=== PATIENT | male | born 1960 | race Caucasian/White ===

== ENCOUNTER 2019-03-23 10:55 | Inpatient (IN) | payer BC, SELFPAY ==
--- NOTE | ~2019-03-23 | XR_ITS ---
XR abdomen NG/feed tube insert INDICATION: Evaluate NG tube position. TECHNIQUE: Limited KUB perform for evaluating NG tube . COMPARISON: 03/25/2019 FINDINGS: [NG tube tip in the stomach. Visualized bowel gas pattern is nonspecific. IMPRESSION: 1: [NG tube tip in the stomach. Reviewed, dictated and finalized at location A. LE EQUIPMENT OPERATOR
--- NOTE | ~2019-03-23 | XR_ITS ---
EXAMINATION: XR abdomen obstructive series DATE: 03/25/2019 07:42 INDICATION: Adynamic ileus. TECHNIQUE: Upright and supine views of the abdomen on 4 radiographs were obtained. COMPARISON: CT abdomen and pelvis 03/23/2019 FINDINGS: There are multiple dilated loops of small bowel. The colon is mildly distended and gas-fill ed. No free intraperitoneal gas. There are phleboliths in the pelvis. There are airspace opacities at left lung base, likely atelectasis. IMPRESSION: 1. Dilated small and large bowel, likely adynamic ileus. Reviewed, dictated and finalized at location B. ATRIC SPEECH THERAPIST
--- NOTE | ~2019-03-23 | MR_ITS ---
EXAMINATION: MR lumbar spine wo con DATE: 03/28/2019 14:46 INDICATION: Low back pain. TECHNIQUE: Magnetic resonance imaging (MRI) of the lumbar spine was performed without intravenous con trast. Sequences included sagittal T2-weighted FSE, sagittal T2-weighted FS FSE, sagittal T1-weighted FSE, and axial T2-weighted FSE. COMPARISON: CT abdomen and pelvis 03/23/2019 FINDINGS: Bone alignment is normal. There are Schmorl's nodes at all levels. There is mildly decrease d disc height at L2-L3 and L3-L4, moderately decreased disc height at L4-L5, and severely decreased d isc height at L5-S1. The distal spinal cord signal intensity is normal. The conus medullaris is at T1 2-L1. The following disc levels are specifically discussed: L1-L2: The disc does not extend beyond the endplate margin. There is mild bilateral facet joint osteo arthritis. There is no neural foraminal stenosis. There is no central canal stenosis. L2-L3: The disc is bulging. There is moderate bilateral facet joint osteoarthritis. There is mild susie ateral neural foraminal stenosis. There is mild central canal stenosis. L3-L4: The disc is bulging. There is no facet joint osteoarthritis. There is mild bilateral neural fo raminal stenosis. There is mild central canal stenosis. L4-L5: The disc is bulging. There is moderate bilateral facet joint osteoarthritis. There is moderate right and mild left neural foraminal stenosis. There is mild central canal stenosis. L5-S1: The disc is bulging and has an annular fissure. There is mild bilateral facet joint osteoarthr itis. There is mild right and moderate left neural foraminal stenosis. There is mild central canal st enosis. IMPRESSION: 1. Severe lower lumbar spondylosis. Reviewed, dictated and finalized at location A. OR PROJECT ARCHITECT
--- NOTE | ~2019-03-23 | XR_ITS ---
EXAMINATION: XR chest 1V portable DATE: 03/23/2019 12:51 INDICATION: Right flank pain. TECHNIQUE: A single frontal view of the chest was obtained. COMPARISON: Chest 2 views 02/23/2014 FINDINGS: There is mild atelectasis in the lower lung zones. No pleural effusion or pneumothorax. The heart size is normal. IMPRESSION: 1. Mild atelectasis in the lower lung zones. Reviewed, dictated and finalized at location A. MITE RECLAIMER
--- NOTE | ~2019-03-23 | US_ITS ---
EXAMINATION: US right upper quadrant DATE: 03/25/2019 08:47 INDICATION: Abdominal pain. TECHNIQUE: Multiple grayscale and Doppler ultrasound images of the abdomen were obtained. COMPARISON: CT abdomen and pelvis 03/23/2019 FINDINGS: The visualized portions of the head and body of the pancreas are normal. There is diffuse h epatic steatosis. There is normal flow in main portal vein. The gallbladder is normal in size. No gal lstones or gallbladder wall thickening. There was no sonographic Sylvester sign. The common duct is norm al and measures 4 mm. There is a 4.0 cm cyst in right kidney. IMPRESSION: 1. Diffuse hepatic steatosis. Reviewed, dictated and finalized at location B. LINE SYSTEMS OPERATOR
--- NOTE | ~2019-03-23 | XR_ITS ---
EXAMINATION: XR abdomen/kub 1V INDICATION: Abdominal distention TECHNIQUE: Supine views of the abdomen were obtained on three radiographs. COMPARISON: 03/26/2019 FINDINGS: The nasogastric tube is been removed. There is persistent gaseous distention of the ascendi ng and transverse colon. The small bowel is normal in caliber. No free intraperitoneal gas is identif ied. IMPRESSION: 1. Persistent gaseous distention of the ascending and transverse colon, likely adynamic ileus. Reviewed, dictated and finalized at location A. ROPOMETRIST
--- NOTE | ~2019-03-23 | CT_ITS ---
EXAMINATION: CT abdomen pelvis w con DATE: 03/23/2019 12:29 INDICATION: Left flank pain. TECHNIQUE: Computed tomography (CT) of the abdomen and pelvis was performed with 100 mL Omnipaque 350 intravenous contrast. Automated exposure control and iterative reconstruction technique were employe d. The dose-length product was 1719.74 mGy-cm. COMPARISON: None. FINDINGS: The visualized portions of the lung bases demonstrate mild atelectasis. There are small ple ural effusions. The heart size is normal. No pericardial effusion. The liver, gallbladder, spleen, pa ncreas, and adrenal glands are normal. There is a 3.9 cm cyst in right kidney. There is a 3.9 cm mass in left kidney upper pole with macroscopic fat, consistent with an angiomyolipoma. There is mild lef t hydronephrosis. There is a left inguinal hernia containing fat. There are no dilated loops of bowel . The appendix is normal. There are no pathologically enlarged lymph nodes. There is no free intraper itoneal fluid. There is severe lower lumbar spondylosis. IMPRESSION: 1. Mild left hydronephrosis. 2. Left inguinal hernia containing fat. Reviewed, dictated and finalized at location A. STANT SUPERINTENDENT FOR CURRICULUM
--- NOTE | ~2019-03-23 | XR_ITS ---
EXAMINATION: XR abdomen/kub 1V DATE: 03/26/2019 08:35 INDICATION: Adynamic ileus. TECHNIQUE: A supine view of the abdomen on 2 radiographs was obtained. COMPARISON: CT abdomen and pelvis 03/23/2019 FINDINGS: The small bowel is normal in caliber. There is gaseous distention of the ascending and hector sverse colon. The nasogastric tube tip is in the stomach. There are phleboliths in the pelvis. IMPRESSION: 1. Gaseous distention of the ascending and transverse colon, consistent with adynamic ileus. Reviewed, dictated and finalized at location A. ENERGY RATER IMPRESSION: 1. Gaseous distention of the ascending and transverse colon, consistent with ad ynamic ileus.
--- NOTE | ~2019-03-23 | XR_ITS ---
EXAMINATION: XR enema water soluble DATE: 03/28/2019 11:28 INDICATION: Ileus, irregular bowel movement, concern for obstruction TECHNIQUE: A director of scout work radiograph was obtained. A catheter was inserted into the patient's rectum. Contra st was infused by gravity. Fluoroscopic spot images and conventional radiographs were obtained. Fluor oscopy exposure time was 2.1 minutes. The DAP for this procedure was 424.7 mGycm2. COMPARISON: Abdominal radiograph from today FINDINGS: Call Out Clerk radiograph demonstrates persistent distention of the ascending and transverse colon. The descending and sigmoid colon and rectum are normal in caliber with smooth transition between the distended and nondistended colon. There is no mass or stricture of the colon. No free intraperitoneal gas is identified. IMPRESSION: 1. Findings consistent with adynamic ileus. Reviewed, dictated and finalized at location A. NE EQUIPMENT ENGINEER
[2019-03-23 11:19] VITALS: BP 154/82; PULSE 110; RESP 16; TEMP 36.9; O2SAT 100
[2019-03-23 11:34] LABS: Basophils Absolute Auto 0.1 K/mm3 (0.0-0.1); Basophils Percent Auto 0.3 % (0.2-1.2); Eosinophils Absolute Auto 0.1 K/mm3 (0-0.3); Eosinophils Percent Auto 0.5 % (0-4.4); Hematocrit 46.8 % (42.0-52.0); Immature Granulocyte Absolute 0.15 K/mm3 (0.00-0.031); Immature Granulocyte Percent A 0.6 % (0-0.5); Lymphocytes Absolute Auto 2.08 K/mm3 (0.9-3.2); Mean Corpuscular HGB Conc 34.2 g/dl (32-36); Mean Corpuscular Volume 84.9 fl (80-100); Mean Platelet Volume 10.4 fl (7.4-10.4); Monocytes Percent Auto 8.8 % (2.6-8.5); Neutrophils Absolute Auto 18.6 K/mm3 (1.3-6.7); Neutrophils Percent Auto 80.8 % (45.5-73.1); Platelet Count Result 236 k/mm3 (150-375); Red Blood Count 5.51 M/mm3 (4.6-6.20); Red Cell Distribution Width 12.1 % (11.5-14.5); White Blood Count 23.1 K/mm3 (4.5-10.0)
[2019-03-23 11:36] LABS: Add Urine Microscopic? YES; Appearance Urine Clear (Clear); Bilirubin Urine Negative (Negative); Blood Urine Negative (Negative); Color Urine Yellow (Yellow); Glucose Urine UA Negative (Negative); Ketones Urine Trace mg/dL (Negative); Leukocyte Esterase Ur Negative LEU/UL (Negative); Mucus Urine Rare /lpf; Nitrate Urine Negative (Negative); Protein Urine 3+ mg/dL (Negative); RBC Urine 0-2 /hpf (0-2); Specific Grav Ur 1.023 (1.001-1.035); Urobilinogen Urine Negative mg/dL (<2.0); WBC Urine 0-3 /hpf
[2019-03-23 11:45] LABS: Alanine Aminotransferase 24 U/L (4-50); Albumin Level 4.6 g/dL (3.5-5.1); Alkaline Phosphatase 70 U/L (38-126); Aspartate Amino Transferase 19 U/L (17-59); Bilirubin,Total 0.9 mg/dL (0.2-1.3); Blood Urea Nitrogen 13 mg/dL (9-20); Calcium 9.7 mg/dL (8.4-10.2); Carbon Dioxide 25 mmol/L (22-30); Chloride 93 mmol/L (98-107); Estimated CRCL calculation 108 ml/min; Estimated Glomerular Filt Rate > 60; Glucose 214 mg/dL (75-110); Lipase 25 U/L (23-300); Potassium 3.7 mmol/L (3.4-5.0); Sodium 132 mmol/L (137-145)
--- NOTE | 2019-03-23 12:10 | ED.ABDPAIN ---
HPI - Abdominal Pain General Chief Complaint: Abdominal Pain Stated Complaint: ABD PAIN X2D Time Seen by Provider: 03/23/19 12:05 Source: patient and RN notes reviewed Mode of arrival: ambulatory Limitations: no limitations History of Present Illness HPI narrative: Pt is a 58 y/o male presenting to the ED c/o ABD pain. Pt reports he has been experiencing LUQ ABD pain for 2 days. Pt states his pain is not alleviated nor worsened with anything. Pt also notes he has had rt flank pain directly after moving a couch last Thursday. Pt denies N/V, diarrhea, or fever. Pertinent past history: none Onset (ago): day(s) (2) Location: LUQ Exacerbating factors: nothing Relieving factors: nothing Associated symptoms: other (Rt flank pain) Related Data Allergies Allergy/AdvReac Type Severity Reaction Status Date / Time Penicillins Allergy Unknown Unknown Verified 03/23/19 11:23 Review of Systems Review of Systems: All systems reviewed & are unremarkable except as noted in HPI and below Constitutional: Constitutional: Denies fever(s) Gastrointestinal: Gastrointestinal: Reports abdominal pain (LUQ), Denies diarrhea, Denies nausea and Denies vomiting Musculoskeletal: Musculoskeletal: Reports other (Rt flank pain) [facility] Past Medical History Medical History Bronchitis Diabetes mellitus HTN (hypertension) Psoriasis Surgical History Surgical History H/O hernia repair H/O left knee surgery H/O partial nephrectomy Lt History of testicular surgery Family History Family History Father Family history of diabetes mellitus in first degree relative Family history of heart disease in male family member before age 55 Mother Family history of heart disease in male family member before age 55 Social History Social History Smoking status: Unknown if ever smoked Gender identity (if verbalized by the patient): Male Exam Narrative: Exam Narrative: APPEARANCE: No acute distress, nontoxic, resting in bed HEENT: Normocephalic, atraumatic, OMM RESPIRATORY: No respiratory distress, clear to auscultation bilaterally with no rhonchi wheezing or rales CARDIOVASCULAR: RRR s murmur ABDOMINAL: Obese, soft, nondistended, tender to palpation in left upper quadrant left lower quadrant, no tenderness in right upper quadrant right lower quadrant, rebound or guarding MUSCULOSKELETAl: Moves all extremities. No clubbing, cyanosis or edema. NEURO: Awake and alert. Following commands, speech normal, no focal deficits SKIN:: Warm, dry. Normal Color PSYCHIATRIC: Normal affect/mood Course Course Emergency Course: Patient states abdominal pain is improved with less tenderness in left upper quadrant with leukocytosis will admit Discussed with patient and family results of workup and diagnosis. Discussed need for admission. Patient and family understand and agree to current treatment plan Consultations Consultation #1: Discussed case with Hospitalist MARISOL Rocha. Accepted the pt for admission. Date: 03/23/19 Time: 13:48 Consultation #2: Discussed case with General Surgeon Dr. Colindres. Accepted the pt for consultation. Date: 03/23/19 Time: 14:30 Vital Signs Vital signs: Vital Signs Temperature 98.5 F 03/23/19 11:19 Pulse Rate 110 H 03/23/19 11:19 Respiratory Rate 16 03/23/19 11:19 Blood Pressure 154/82 H 03/23/19 11:19 Pulse Oximetry 100 03/23/19 11:19 Temperature 98.5 F 03/23/19 11:19 Pulse Rate 95 03/23/19 12:39 Respiratory Rate 27 H 03/23/19 12:39 Blood Pressure 173/84 H 03/23/19 12:39 Pulse Oximetry 98 03/23/19 12:39 MDM - Abdominal Pain Lab Data Result diagrams: 03/23/19 11:21 03/23/19 11:21 Labs: Lab Results 03/23/19 03/23/19 03/23/19 Range/Units 11:21 11:21 11:21 WBC 23.1 H (4.5-10.0) K/mm3
--- NOTE | 2019-03-23 12:31 | PC.NURSE ---
PT TAKEN TO CT PER STRETCHER AT THIS TIME, WILL MEDICATE PER PROVIDER ORDER UPON RETURN.
[2019-03-23 12:39] VITALS: BP 173/84; PULSE 95; RESP 27; O2SAT 98
[2019-03-23] MEDS: SODIUM CHLORIDE 0.9% IV 1,000 ML 999 ML IV CONT (12:39)
[2019-03-23 13:23] LABS: INR 1.1; Prothrombin Time 14.3 Seconds (11.1-14.7)
[2019-03-23 13:24] LABS: Partial Thromboplastin Time 34.1 SECONDS (22.3-36.8)
[2019-03-23 13:40] LABS: Lactic Acid Reflex 1.3 mmol/L (0.7-2.1)
[2019-03-23 14:00] VITALS: BP 163/97; PULSE 80; RESP 18; O2SAT 100
[2019-03-23 15:11] VITALS: BP 180/101; PULSE 91; RESP 18; O2SAT 97
[2019-03-23] MEDS: SODIUM CHLORIDE 0.9% IV 1,000 ML 125 ML IV CONT (15:26)
--- NOTE | 2019-03-23 15:36 | PC.NURSE ---
This patient, Cali Lopez, was admitted to 3 [facility] Surg Room 310-01. Report received from MILAGROS Harden. Patient/family oriented to hospital policies and general routines including ID bracelet, bed and alarms, visiting hours, pain management, procedures, bathroom and other care routines, personal items, smoking policy, room service/diet, and visiting hours. Valuables list has been completed. Information on how to activate the Rapid Response Team has been discussed. Patient/Family are encouraged to report perceived risks to care and to ask questions if they do not understand what they are told or what they should do.
[2019-03-23 15:46] VITALS: BP 144/66; PULSE 91; RESP 18; TEMP 36.6; O2SAT 96
--- NOTE | 2019-03-23 16:00 | PM.IMHP ---
H&P: HPI History of Present Illness Chief complaint: Abdominal pain. Narrative: Cali Lopez is a pleasant 58 year old male with hypertension and type 2 diabetes who presented to the emergency department earlier this afternoon from home for evaluation of abdominal pain. A couple of days ago, maricruz aquino read just in himself on the couch, that he has a difficult time describing but stating that it is sometimes sharp in nature. It has been constant since the outset, but seems to come and go in waves of intensity. Currently he rates the pain 7/10. It does not radiate. additionally, he notes abdominal bloating. He took Aleve x3 however that provided him with no benefit. He gives no aggravating or alleviating factors. He has never had similar symptoms in the past. He has not had fever, chills, or sweats. He denies nausea and vomiting. His stools are ?always a little loose? and this is unchanged. No history of pancreatitis, gallstones, GERD, or peptic ulcers. He does not believe that he has had any musculoskeletal injury. Review of Systems Review of Systems: Narrative: Twelve systems were reviewed with pertinent positives and negatives as per HPI. He denies fever, chills, and sweats. No recent cold or flu-like symptoms. He believes his diabetes is well controlled with a recent hemoglobin A1c of 6.8. His white blood cell count was elevated today, and he has been told a couple of times this year that his white count was elevated from baseline. He is wondering if it is due to stem cell injections in his knees. He has no history of blood dyscrasia. Except as documented, all other systems were reviewed and are negative. [facility] Past Medical History Medical History (Updated 03/23/19 @ 22:31 by Millie Rocha PA-C) Eczema History of depression Hyperlipidemia Hypertension (Unknown) Intervertebral disc rupture Osteoarthritis He has had stem cell injections into both knees. 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 History of testicular surgery For undescended testicle. Family History Family History Father Family history of heart disease in male family member before age 55 Family history of diabetes mellitus in first degree relative Acute myocardial infarction Cerebrovascular accident Mother Family history of heart disease in male family member before age 55 Social History Social History (Updated 03/23/19 @ 21:09 by Millie Rocha PA-C) Social History: The patient is originally from [place]. He lives with his in [place]. He has a remote smoking history and quit 1981. He has a history of alcohol abuse but has abstained for nearly 15 years. No drug use. He designates his as his surrogate decision maker and he wishes to be a full code. Smoking packs per day: 1 Smoking cigarettes per day: 20.0 Years smoked: 10 Smoking pack-years: 10.00 Smoking status: Former smoker Tobacco type: cigarettes Alcohol intake: former Substance use: never Gender identity (if verbalized by the patient): Male Spiritual care concerns: No Agree to blood products: Yes Meds Home Medications and Allergies Home Medications Medication Instructions Recorded Confirmed Type losartan 50 mg PO BID 03/23/19 03/23/19 History metformin 850 mg PO BID 03/23/19 03/23/19 History Allergies Allergy/AdvReac Type Severity Reaction Status Date / Time Penicillins Allergy Unknown Unknown Verified 03/23/19 11:23 Vital Signs Vital Signs - 24 hr 03/23/19 11:19 03/23/19 12:39 03/23/19 14:00 Temperature 98.5 F Pulse Rate 110 H 95 80 Respiratory Rate 16 27 H 18 Blood Pressure 154/82 H 173/84 H
[2019-03-23] MEDS: MORPHINE SULFATE 2 MG/ML INJ IV PUSH (16:14)
[2019-03-23 18:37] VITALS: BMI 42.5
[2019-03-23] MEDS: ACETAMINOPHEN 325 MG TABLET 650 MG PO (21:04)
[2019-03-23] MEDS: LOSARTAN POTASSIUM 50 MG TABLET PO (21:08)
--- NOTE | 2019-03-23 21:33 | PM.CNGS ---
Assessment and Plan Assessment and plan (1) Abdominal pain, acute, left upper quadrant: Onset Date: ~03/22/19 Code(s): R10.12 - Left upper quadrant pain Status: Acute Assessment and Plan: At this point is unknown etiology. CT scan did not showing any light on what might be causing the patient's left upper quadrant pain. Therefore possibilities of gastritis or peptic ulcer disease are present CIS these are not well seen on CT. Possibility of a viral gastroenteritis would be present but the patient is not having the typical symptoms such as nausea, vomiting, and or diarrhea. Therefore, if his white count is still high and he still having upper after quadrant pain in the morning possibly consider GI consultation and upper GI endoscopy to rule out a gastric or duodenal source. I have ordered stool antigen for H pylori. I agree with repeating a CBC and CMP. Added serum magnesium to be sure that is normal. Patient's lactic acid was noted to be normal in the ED so some type of systemic sepsis is less likely. (2) Leukocytosis: Onset Date: ~03/23/19 Code(s): D72.829 - Elevated white blood cell count, unspecified Status: Acute Assessment and Plan: Unknown etiology. Consider repeat in a.m. and if not improved consider having pathology look at a smear May also need to consider a hematology consultation if another reason for the leukocytosis can not be identified. (3) Type 2 diabetes mellitus: Onset Date: Unknown Code(s): E11.9 - Type 2 diabetes mellitus without complications Status: Acute Assessment and Plan: Has per hospitalist service (4) Hypertension: Onset Date: Unknown Code(s): I10 - Essential (primary) hypertension Status: Acute Assessment and Plan: continue home meds, As per hospitalist service. Additional Plan Consider GI consultation upper GI endoscopy. At this time I do not find anything that I believe surgically can be of help. History of Present Illness Consult details Consult date: 03/23/19 Reason for consult: abdominal pain Requesting physician: Mike Blackburn MD Narrative: Pt is a 58 y/o White male who presentied to the ED today c/o ABD pain. Pt reports he has been experiencing LUQ ABD pain for 2 days. Patient states that this seemed to start on Thursday of this week when he was laying on his bed and twisted to try to change positions. This led to low back pain starting around noon to 3:00 p.m. on Thursday. At the time he took 600 mg of Motrin to try to help it and then over the last 2 days has about 10 times late in a warm hot bath. He also last evening took some Tylenol to try to help but. After after a took the Motrin he began having some left upper quadrant abdominal pain. He also began to feel really bloated and so he came to the emergency room today complaining of the left upper quadrant abdominal pain bloating without nausea or vomiting. His last bowel movement was this morning with 2 small solid pieces of stool. Pt states his pain is not alleviated nor worsened with anything. Pt also notes he has had rt flank pain directly after moving wrong on a couch last Thursday. Pt denies N/V, diarrhea, or fever. He states he has never taken his temperature at home. However, in the emergency room he did not have a fever either. Pertinent past history: He has never had a colonoscopy. He stated that he picked up colo guard test but has never done at. He has never had an upper GI endoscopy that he knows of. He has never had a gastric or duodenal ulcer. After workup in the emergency room the patient was admitted because he had a 23,000 white count and the abdominal pain but a negative CT scan of the abdomen and pelvis other than some mild left hydronephrosis with a fairly normal looking UA. Review of Systems Constitutional: Constitutional: Reports as per HPI, Reports chills ( Last night.) and Denies headache(s) Comments:
[2019-03-23 22:00] VITALS: BP 147/73; PULSE 98; RESP 20; TEMP 37.2; O2SAT 97
[2019-03-23] MEDS: SODIUM CHLORIDE 0.9% IV 1,000 ML 100 ML IV CONT (23:12)
[2019-03-24] MEDS: MORPHINE SULFATE 2 MG/ML INJ IV PUSH ×3 (00:55→16:58)
[2019-03-24 06:00] VITALS: BP 160/78; PULSE 66; RESP 22; TEMP 37.2; O2SAT 96
[2019-03-24 06:32] LABS: Basophils Absolute Auto 0.1 K/mm3 (0.0-0.1); Basophils Percent Auto 0.3 % (0.2-1.2); Eosinophils Absolute Auto 0.1 K/mm3 (0-0.3); Eosinophils Percent Auto 0.5 % (0-4.4); Hematocrit 42.8 % (42.0-52.0); Hemoglobin 14.6 g/dL (14.0-18.0); Immature Granulocyte Absolute 0.09 K/mm3 (0.00-0.031); Immature Granulocyte Percent A 0.5 % (0-0.5); Lymphocytes Absolute Auto 1.25 K/mm3 (0.9-3.2); Lymphocytes Percent Auto 7.6 % (18.3-44.2); Mean Corpuscular HGB Conc 34.1 g/dl (32-36); Mean Corpuscular Hemoglobin 29.1 pg (26-34); Mean Corpuscular Volume 85.3 fl (80-100); Mean Platelet Volume 10.3 fl (7.4-10.4); Monocytes Absolute Auto 1.7 K/mm3 (0.1-0.6); Monocytes Percent Auto 10.4 % (2.6-8.5); Neutrophils Absolute Auto 13.3 K/mm3 (1.3-6.7); Neutrophils Percent Auto 80.7 % (45.5-73.1); Platelet Count Result 228 k/mm3 (150-375); Red Blood Count 5.02 M/mm3 (4.6-6.20); Red Cell Distribution Width 12.1 % (11.5-14.5); White Blood Count 16.5 K/mm3 (4.5-10.0)
[2019-03-24 06:47] LABS: Alanine Aminotransferase 21 U/L (4-50); Albumin Level 3.8 g/dL (3.5-5.1); Alkaline Phosphatase 68 U/L (38-126); Aspartate Amino Transferase 23 U/L (17-59); Bilirubin,Total 0.8 mg/dL (0.2-1.3); Blood Urea Nitrogen 11 mg/dL (9-20); Calcium 8.6 mg/dL (8.4-10.2); Carbon Dioxide 21 mmol/L (22-30); Chloride 94 mmol/L (98-107); Estimated CRCL calculation 139 ml/min; Estimated Glomerular Filt Rate > 60; Glucose 204 mg/dL (75-110); Magnesium 1.9 mg/dL (1.6-2.3); Potassium 3.8 mmol/L (3.4-5.0); Sodium 128 mmol/L (137-145)
[2019-03-24] MEDS: LOSARTAN POTASSIUM 50 MG TABLET PO (08:46)
[2019-03-24] MEDS: FAMOTIDINE 20 MG/2 ML VIAL IV PUSH ×2 (08:46→20:55)
[2019-03-24] MEDS: INSULIN ASPART (*BKC) 100 UNITS/ML SUB-Q ×2 (08:48→12:26)
[2019-03-24] MEDS: SODIUM CHLORIDE 0.9% IV 1,000 ML 100 ML IV CONT ×2 (09:26→19:39)
[2019-03-24 10:30] LABS: Glucose Point of Care 251 (65-105)
[2019-03-24 12:22] LABS: Glucose Point of Care 211 (65-105)
[2019-03-24 14:00] VITALS: BP 154/80; PULSE 87; RESP 19; TEMP 37; O2SAT 96
--- NOTE | 2019-03-24 14:46 | PM.IMPN ---
Progress Note: A&P Assessment and Plan (1) Abdominal pain, acute, left upper quadrant: Onset Date: ~03/22/19 Code(s): R10.12 - Left upper quadrant pain Status: Acute Assessment and Plan: Etiology is not entirely clear. Pt requesting morphine for pain control. May need GI consult. Seen by surgery I will allow him have clear liquids. (2) Leukocytosis: Onset Date: ~03/23/19 Code(s): D72.829 - Elevated white blood cell count, unspecified Status: Acute Assessment and Plan: He does have a left shift. Wcc are high? secondary to stress response (3) Type 2 diabetes mellitus: Onset Date: Unknown Code(s): E11.9 - Type 2 diabetes mellitus without complications Status: Acute Assessment and Plan: Initiate sliding scale insulin, Accu-Cheks, and hypoglycemic protocol. (4) Hypertension: Onset Date: Unknown Code(s): I10 - Essential (primary) hypertension Status: Acute Assessment and Plan: Blood pressures were as high as 160/ 78 slightly improved Subjective Date/time seen: 03/24/19 14:46 John is a pleasant 58 year old male with hypertension and type 2 diabetes who presented to the emergency department earlier this afternoon from home for evaluation of abdominal pain. Pt describes severe lower left and right quadrant pain, CT abdo shows hernia and mild hydronephrosis. Kidney function is good and Ua is negative. Pt denies any diarrhea or vomiting ? peptic ulcer will consult GI for further recommendation and possibly a scope Review of Systems Review of Systems: All systems reviewed & are unremarkable except as noted in HPI and below Gastrointestinal: Gastrointestinal: Reports abdominal pain, Denies diarrhea and Denies vomiting Exam Narrative: Exam Narrative: General: A well-developed HEENT: Normocephalic Neck: Supple. Respiratory: Lungs are clear to auscultation bilaterally. Cardiovascular: Regular rate and rhythm with S1-S2. No murmur, rub, or gallop. Gastrointestinal: Abdomen is soft, obese,TTP over bilateral lower quadrants Skin: Warm and dry. Extremities: No cyanosis or clubbing. Neurological: Alert. Cranial nerves 2-12 are grossly intact. No gross focal deficits to casual conversation. Psychiatric: Pleasant and cooperative with normal mood and affect. Objective Data Vital Signs Vital Signs: Vital Signs - 24 hr 03/23/19 15:11 03/23/19 15:46 03/23/19 22:00 Temperature 36.6 C 37.2 C Pulse Rate 91 91 98 Respiratory Rate 18 18 20 Blood Pressure 180/101 H 144/66 H 147/73 H Pulse Oximetry 97 96 97 03/24/19 06:00 Temperature 37.2 C Pulse Rate 66 Respiratory Rate 22 H Blood Pressure 160/78 H Pulse Oximetry 96 Intake/Output Intake/Output: Intake & Output 03/21/19 03/22/19 03/23/19 03/24/19 23:59 23:59 23:59 23:59 Intake Total 1150 1820 Output Total 1050 Balance 1150 770 Meds/Results Medications: Active Medications Generic Name Dose Route Start Last Admin Trade Name Freq PRN Reason Stop Dose Admin Acetaminophen 650 mg 03/23/19 16:00 03/23/19 21:04 Tylenol Tablet PO 650 mg Q6H PRN Administration Mild Pain (1-3) or Fever Hydrocodone Bitart/Acetaminophen 1 tab 03/23/19 16:00 03/24/19 12:25 Poth 5-325 Mg PO 1 tab Q6H PRN Administration Pain Rated 4-6 Dextrose 12.5 gm 03/23/19 22:35 Dextrose 50% Syringe IV PUSH PRN PRN Hypoglycemia Protocol Famotidine 20 mg 03/24/19 09:00 03/24/19 08:46 Pepcid Iv IV PUSH 20 mg Q12HR MANJU Administration Glucagon 1 mg 03/23/19 22:35 Glucagon For Inj IM PRN PRN
[2019-03-24 16:03] LABS: Glucose Point of Care 162 (65-105)
--- NOTE | 2019-03-24 18:39 | PM.PNGS ---
Progress Note: A&P Assessment and Plan (1) Abdominal pain, acute, left upper quadrant: Onset Date: ~03/22/19 Code(s): R10.12 - Left upper quadrant pain Status: Acute Assessment and Plan: Possible gastritis, possible duodenal ulcer. Patient has not had a colonoscopy so colon pathology is another possibility. (2) Leukocytosis: Onset Date: ~03/23/19 Code(s): D72.829 - Elevated white blood cell count, unspecified Status: Acute Assessment and Plan: Consider having the pathologist look at a peripheral smear. This may be because of inflammation or gastritis. Additional Plan Stool to be sent for H pylori when patient has a bowel movement Agree with GI consultation and possible EGD for further diagnostic evaluation. Subjective Subjective Date/Time Seen: 03/24/19 18:39 Patient Corine in bed when I entered the room. States he has some [id number] discomfort across the upper left and mid abdomen. Tolerating some liquids. Has been up walking but only short distances because of his back. Review of Systems Constitutional: Constitutional: Reports no additional constitutional complaints ENT: Reports other (Mucous Membranes moist.) Cardiovascular: Cardiovascular: Denies dyspnea Respiratory: Respiratory: Denies pain on inspiration and Denies dyspnea Gastrointestinal: Gastrointestinal: Reports abdominal pain ( Mid and left upper abdomen.), Denies melena and Reports constipation ( Last bowel movement 7:00 a.m. yesterday.) Musculoskeletal: Musculoskeletal: Reports back pain and Reports other (No calf swelling or edema) Comments: Low mid back. Exam Const: General: cooperative, no acute distress, alert and awake Orientation/consciousness: oriented x3 HENMT: Mouth: Yes moist mucous membranes Neck: Neck: normal visual inspection Chest: Chest palpation & inspection: normal inspection of the chest Resp: Effort & Inspection: normal respiratory effort Auscultation: clear to auscultation bilaterally Cardio: Jugular venous distension: no JVD Rate: regular rate Rhythm: regular rhythm GI: Rectal Exam: deferred Neuro: General: oriented x3 and moves all extremities Speech: normal speech Extrem: General: normal exam except as noted Psych: Mental Status: mental status grossly normal Speech and movement: speech and movement normal Affect: normal affect Thought content: Yes normal Objective Data Vital Signs Vital Signs: Vital Signs - 24 hr 03/23/19 22:00 03/24/19 06:00 03/24/19 14:00 Temperature 37.2 C 37.2 C 37.0 C Pulse Rate 98 66 87 Respiratory Rate 22 H 19 Blood Pressure 147/73 H 160/78 H 154/80 H Pulse Oximetry 97 96 96 Intake/Output Intake/Output: Intake & Output 03/21/19 03/22/19 03/23/19 03/24/19 23:59 23:59 23:59 23:59 Intake Total 1150 3860 Output Total 2500 Balance 1150 1360 Meds/Results Medications: Active Medications Generic Name Dose Route Start Last Admin Trade Name Freq PRN Reason Stop Dose Admin Acetaminophen 650 mg 03/23/19 16:00 03/23/19 21:04 Tylenol Tablet PO 650 mg Q6H PRN Administration Mild Pain (1-3) or Fever Hydrocodone Bitart/Acetaminophen 1 tab 03/23/19 16:00 03/24/19 12:25 [place] 5-325 Mg PO 1 tab Q6H PRN Administration Pain Rated 4-6 Dextrose 12.5 gm 03/23/19 22:35 Dextrose 50% Syringe IV PUSH PRN PRN Hypoglycemia Protocol Famotidine 20 mg 03/24/19 09:00 03/24/19 08:46 Pepcid Iv IV PUSH 20 mg Q12HR MANJU Administration Glucagon 1 mg 03/23/19 22:35 Glucagon For Inj IM PRN PRN Hypoglycemia Protocol Glucose 15 gm 03/23/19 22:35 Glutose 15 PO PRN PRN Hypoglycemia Protocol Sodium Chloride 1,000 mls @ 100 mls/hr 03/23/19 14:40 03/24/19 17:03 Normal Saline Iv IV CONT 100 mls/hr .Q10H MANJU Infusion Dextrose 1,000 mls @ 100 mls/hr 03/23/19 22:35 Dextrose 5% 1,000 Ml IVPB PRN
[2019-03-24 23:10] VITALS: BP 158/96; PULSE 89; RESP 20; TEMP 37.3; O2SAT 96
[2019-03-25] MEDS: MORPHINE SULFATE 2 MG/ML INJ IV PUSH ×3 (00:04→10:31)
[2019-03-25] MEDS: SODIUM CHLORIDE 0.9% IV 1,000 ML 100 ML IV CONT ×2 (05:47→17:23)
[2019-03-25 06:17] LABS: Basophils Absolute Auto 0.1 K/mm3 (0.0-0.1); Basophils Percent Auto 0.4 % (0.2-1.2); Eosinophils Absolute Auto 0.2 K/mm3 (0-0.3); Eosinophils Percent Auto 1.4 % (0-4.4); Hematocrit 41.9 % (42.0-52.0); Immature Granulocyte Percent A 0.7 % (0-0.5); Lymphocytes Absolute Auto 1.39 K/mm3 (0.9-3.2); Lymphocytes Percent Auto 9.3 % (18.3-44.2); Mean Corpuscular HGB Conc 33.4 g/dl (32-36); Mean Corpuscular Hemoglobin 29.2 pg (26-34); Mean Corpuscular Volume 87.3 fl (80-100); Mean Platelet Volume 9.7 fl (7.4-10.4); Monocytes Absolute Auto 1.9 K/mm3 (0.1-0.6); Monocytes Percent Auto 12.6 % (2.6-8.5); Neutrophils Absolute Auto 11.2 K/mm3 (1.3-6.7); Neutrophils Percent Auto 75.6 % (45.5-73.1); Platelet Count Result 242 k/mm3 (150-375); Red Cell Distribution Width 12.2 % (11.5-14.5); White Blood Count 14.9 K/mm3 (4.5-10.0)
[2019-03-25 06:33] LABS: Alanine Aminotransferase 20 U/L (4-50); Albumin Level 3.4 g/dL (3.5-5.1); Alkaline Phosphatase 67 U/L (38-126); Aspartate Amino Transferase 17 U/L (17-59); Bilirubin,Total 0.7 mg/dL (0.2-1.3); Blood Urea Nitrogen 10 mg/dL (9-20); Calcium 8.5 mg/dL (8.4-10.2); Carbon Dioxide 27 mmol/L (22-30); Chloride 91 mmol/L (98-107); Estimated CRCL calculation 123 ml/min; Estimated Glomerular Filt Rate > 60; Glucose 183 mg/dL (75-110); Lipase 19 U/L (23-300); Potassium 3.7 mmol/L (3.4-5.0); Sodium 128 mmol/L (137-145)
[2019-03-25 06:36] VITALS: BP 148/92; PULSE 86; RESP 20; TEMP 37.3; O2SAT 93
[2019-03-25] MEDS: LOSARTAN POTASSIUM 50 MG TABLET PO (08:46)
[2019-03-25] MEDS: FAMOTIDINE 20 MG/2 ML VIAL IV PUSH ×2 (08:46→22:09)
[2019-03-25 09:05] LABS: Glucose Point of Care 182 (65-105)
[2019-03-25 12:17] LABS: Glucose Point of Care 175 (65-105)
--- NOTE | 2019-03-25 13:56 | WPDGICN ---
Assessment and Plan Additional Plan This is a 58-year-old white male patient I am asked to see because of abdominal pain. Patient states the pain began on Thursday 4 days ago. He states he moved in bed and retched his back. He subsequently has had increasing abdominal discomfort. He has had increasing abdominal distention and diffuse abdominal pain. His last bowel movement was 2 days prior to this. During the intervening week he is taking significant pain medications for his back. He states the last time his abdomen was distended like this it was after kidney surgery. Past medical history is significant for diabetes mellitus. He has been treated for depression, hyperlipidemia, hypertension. He has a history of intervertebral disc rupture. Medications include Aleve at home. He also takes metformin for diabetes and losartan for hypertension. Since his hospital stay he has been on narcotic pain medications. Allergies include penicillin. Family history is noncontributory. Physical exam reveals patient to be alert. He is anicteric. Vital signs stable. HEENT exam unremarkable. He is anicteric. Lungs are clear to auscultation and percussion. Abdomen is obese. He is distended and tympanic. Bowel sounds are absent. No organomegaly noted. CT scan of the abdomen suggest a left inguinal hernia with fat. He has mild left hydronephrosis. KUB obtained today is consistent with ileus. Laboratory studies reveal an elevated WBC count. Impression 1. Adynamic ileus. Etiology for ileus is unclear. It may be related to back injury. It may be related to narcotic pain medications. Problem 2. Elevated WBC count. This suggest inflammation. Cannot exclude underlying infection. An ultrasound of the gallbladder will be obtained. This will need to be monitored. Problem 3. Diabetes mellitus. This appears to be under adequate control at the present time. Problem 4. Obesity. Plan is for NG tube decompression. Continue to monitor her obstructive series. Gastrografin lower GI suggested if symptoms persist. Followed by small bowel series if necessary. We will follow with you. GI Consult Note Consult date/time: 03/25/19 13:56 HPI: Cali Lopez is a 58 year old male PENDING SALE TO [facility] Past Medical History Medical History (Updated 03/23/19 @ 22:31 by Millie Rocha PA-C) Eczema History of depression Hyperlipidemia Hypertension (Unknown) Intervertebral disc rupture Osteoarthritis He has had stem cell injections into both knees. 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 History of testicular surgery For undescended testicle. Family History Family History Father Family history of heart disease in male family member before age 55 Family history of diabetes mellitus in first degree relative Acute myocardial infarction Cerebrovascular accident Mother Family history of heart disease in male family member before age 55 Social History Social History (Updated 03/23/19 @ 21:09 by Millie Rocha PA-C) Social History: The patient is originally from [place]. He lives with his in [place]. He has a remote smoking history and quit 1981. He has a history of alcohol abuse but has abstained for nearly 15 years. No drug use. He designates his as his surrogate decision maker and he wishes to be a full code. Smoking packs per day: 1 Smoking cigarettes per day: 20.0 Years smoked: 10 Smoking pack-years: 10.00 Smoking status: Former smoker Tobacco type: cigarettes Alcohol intake: former Substance use: never Gender identity (if verbalized by the patient): Male Spiritual care concerns: No Agr
--- NOTE | 2019-03-25 14:04 | PM.PNGS ---
Progress Note: A&P Assessment and Plan (1) Abdominal pain, acute, left upper quadrant: Onset Date: ~03/22/19 Code(s): R10.12 - Left upper quadrant pain Status: Acute Assessment and Plan: Etiology unclear. Findings on abdominal x-ray this morning showed dilated small and large bowel suggestive of adynamic ileus. NG tube place and patient made NPO. Etiology for ileus unclear. GI has been consulted and recommendations appreciated. No surgical findings to explain the abdominal pain. Encouraged the patient to walk the halls. Will stimulate his bowels with dulcolax suppository today. (2) Leukocytosis: Onset Date: ~03/23/19 Code(s): D72.829 - Elevated white blood cell count, unspecified Status: Acute Additional Plan Stool to be sent for H pylori when patient has a bowel movement Subjective Subjective Date/Time Seen: 03/25/19 13:04 Patient reports: no new complaints, still having pain, no flatus and no bowel movement Interval history: Patient seen and examined. Abdomoinal xray this morning showed dilated small bowel and colon, suggestive of adynamic ileus. Abdominal ultrasound showed hepatic steatosis. Reports last BM was 2 days ago right before presenting to the ED. Denies nausea or vomiting. Reports feeling bloated. NG tube was placed after the findings on the abdominal x-ray and have had about 300 cc out on my exam of clear liquid drainage. He currently states that he is having abdominal pain at a 5/10 on a pain scale and he points to the center of his abdomen. No recent infections or surgery. Review of Systems Review of Systems: All systems reviewed & are unremarkable except as noted in HPI and below Exam Const: General: no acute distress, alert and awake Orientation/consciousness: oriented x3 GI: Inspection: distended and other (large protuberant abdomen) GI Palp: Yes tender (RUQ and LLQ), No guarding and No rebound tenderness Auscultation: hypoactive bowel sounds Rectal Exam: deferred Neuro: General: moves all extremities and no focal motor deficits Psych: Mental Status: mental status grossly normal Attitude: cooperative Objective Data Vital Signs Vital Signs: Vital Signs - 24 hr 03/24/19 23:10 03/25/19 06:36 Temperature 37.3 C 37.3 C Pulse Rate 89 86 Respiratory Rate 20 20 Blood Pressure 158/96 H 148/92 H Pulse Oximetry 96 93 Intake/Output Intake/Output: Intake & Output 03/22/19 03/23/19 03/24/19 03/25/19 23:59 23:59 23:59 23:59 Intake Total 1150 4360 1550 Output Total 2500 750 Balance 1150 1860 800 Meds/Results Medications: Active Medications Generic Name Dose Route Start Last Admin Trade Name Freq PRN Reason Stop Dose Admin Acetaminophen 650 mg 03/23/19 16:00 03/23/19 21:04 Tylenol Tablet PO 650 mg Q6H PRN Administration Mild Pain (1-3) or Fever Hydrocodone Bitart/Acetaminophen 1 tab 03/23/19 16:00 03/25/19 02:58 [place] 5-325 Mg PO 1 tab Q6H PRN Administration Pain Rated 4-6 Dextrose 12.5 gm 03/23/19 22:35 Dextrose 50% Syringe IV PUSH PRN PRN Hypoglycemia Protocol Famotidine 20 mg 03/24/19 09:00 03/25/19 08:46 Pepcid Iv IV PUSH 20 mg Q12HR MANJU Administration Glucagon 1 mg 03/23/19 22:35 Glucagon For Inj IM PRN PRN Hypoglycemia Protocol Glucose 15 gm 03/23/19 22:35 Glutose 15 PO PRN PRN Hypoglycemia Protocol Sodium Chloride 1,000 mls @ 100 mls/hr 03/23/19 14:40 03/25/19 05:47 Normal Saline Iv IV CONT 100 mls/hr .Q10H MANJU Administration Dextrose 1,000 mls @ 100 mls/hr 03/23/19 22:35 Dextrose 5% 1,000 Ml IVPB PRN PRN Hypoglycemia Protocol Insulin Aspart 4 - 8 units 03/24/19 08:00 03/25/19 11:54 Novolog SUB-Q Not Given TIDWM MANJU Protocol Losartan Potassium 50 mg 03/23/19 17:00 03/25/19 08:46 Cozaar PO 50 mg BID MANJU Administration Morphine Sulfate 2 mg 03/23/19 16:00 03/25
[2019-03-25 14:10] VITALS: BP 160/73; PULSE 94; RESP 16; TEMP 36.5; O2SAT 95
--- NOTE | 2019-03-25 15:29 | PM.IMPN ---
Progress Note: A&P Assessment and Plan (1) Abdominal pain, acute, left upper quadrant: Onset Date: ~03/22/19 Code(s): R10.12 - Left upper quadrant pain Status: Acute Assessment and Plan: Pt has a ileus, pt had ct scan of abdomen and us of abdomen, pt has Ng tube in situ, putting out clear liquid. Pt does not complain of tenderness in his abdomen, adviced not to ask for morphine. (2) Leukocytosis: Onset Date: ~03/23/19 Code(s): D72.829 - Elevated white blood cell count, unspecified Status: Acute Assessment and Plan: He does have a left shift. Wcc are high? secondary to stress response (3) Type 2 diabetes mellitus: Onset Date: Unknown Code(s): E11.9 - Type 2 diabetes mellitus without complications Status: Acute Assessment and Plan: Initiate sliding scale insulin, Accu-Cheks, and hypoglycemic protocol. (4) Hypertension: Onset Date: Unknown Code(s): I10 - Essential (primary) hypertension Status: Acute Assessment and Plan: Blood pressures were as high as 160/ 73 slightly improved Subjective Date/time seen: 03/25/19 15:29 John is a pleasant 58 year old male with hypertension and type 2 diabetes who presented to the emergency department earlier this afternoon from home for evaluation of abdominal pain. Pt describes severe lower left and right quadrant pain, CT abdo shows hernia and mild hydronephrosis. Kidney function is good and Ua is negative. Pt is having ongoing abdominal distension, seen by GI today, pt appears to have ileus. Pt to have NG passed today. Pt states he has not had a bowel movement for 2 days. Review of Systems Review of Systems: All systems reviewed & are unremarkable except as noted in HPI and below Gastrointestinal: Gastrointestinal: Reports bloating, Reports constipation and Reports excessive flatus Exam Narrative: Exam Narrative: General: A well-developed HEENT: Normocephalic Neck: Supple Respiratory: Lungs are clear to auscultation bilaterally Cardiovascular: Regular rate and rhythm with S1-S2. No murmur, rub, or gallop Gastrointestinal: Abdomen is soft, obese, distended, distant bowel sounds Skin: Warm and dry Extremities: No cyanosis or clubbing Neurological: Alert. Cranial nerves 2-12 are grossly intact. No gross focal deficits to casual conversation Psychiatric: Pleasant and cooperative with normal mood and affect Objective Data Vital Signs Vital Signs: Vital Signs - 24 hr 03/24/19 23:10 03/25/19 06:36 03/25/19 14:10 Temperature 37.3 C 37.3 C 36.5 C Pulse Rate 89 86 94 Respiratory Rate 20 20 16 Blood Pressure 158/96 H 148/92 H 160/73 H Pulse Oximetry 96 93 95 Intake/Output Intake/Output: Intake & Output 03/22/19 03/23/19 03/24/19 03/25/19 23:59 23:59 23:59 23:59 Intake Total 1150 4360 1550 Output Total 2500 750 Balance 1150 1860 800 Meds/Results Medications: Active Medications Generic Name Dose Route Start Last Admin Trade Name Freq PRN Reason Stop Dose Admin Acetaminophen 650 mg 03/23/19 16:00 03/23/19 21:04 Tylenol Tablet PO 650 mg Q6H PRN Administration Mild Pain (1-3) or Fever Hydrocodone Bitart/Acetaminophen 1 tab 03/23/19 16:00 03/25/19 02:58 [place] 5-325 Mg PO 1 tab Q6H PRN Administration Pain Rated 4-6 Dextrose 12.5 gm 03/23/19 22:35 Dextrose 50% Syringe IV PUSH PRN PRN Hypoglycemia Protocol Famotidine 20 mg 03/24/19 09:00 03/25/19 08:46 Pepcid Iv IV PUSH 20 mg Q12HR MANJU Administration Glucagon 1 mg 03/23/19 22:35 Glucagon For Inj IM PRN PRN
[2019-03-25] MEDS: BISACODYL 10 MG SUPPOSITORY RECTAL (17:26)
[2019-03-25 17:39] LABS: Glucose Point of Care 168 (65-105)
--- NOTE | 2019-03-25 21:30 | PC.NURSE ---
Noticed NG suction set to continuous at a high setting. Discussed importance of not adjusting suction settings with patient at length, and explained risks. Patient verbalized understanding of information discussed. Returned suction setting to low intermittent suction as ordered. Will continue to monitor.
[2019-03-25 22:00] VITALS: BP 162/90; PULSE 92; RESP 18; TEMP 36.9; O2SAT 96
[2019-03-25] MEDS: hydrALAZINE HCL 20 MG/ML VIAL 5 MG IV PUSH (22:22)
[2019-03-25 23:44] LABS: Glucose Point of Care 155 (65-105)
[2019-03-26] MEDS: MORPHINE SULFATE 2 MG/ML INJ IV PUSH ×2 (01:03→06:51)
[2019-03-26] MEDS: SODIUM CHLORIDE 0.9% IV 1,000 ML 100 ML IV CONT ×2 (03:23→13:29)
[2019-03-26 06:00] VITALS: BP 171/85; PULSE 98; RESP 18; TEMP 36.6; O2SAT 96
[2019-03-26 06:14] LABS: Basophils Absolute Auto 0.1 K/mm3 (0.0-0.1); Basophils Percent Auto 0.4 % (0.2-1.2); Eosinophils Absolute Auto 0.2 K/mm3 (0-0.3); Eosinophils Percent Auto 1.2 % (0-4.4); Hematocrit 42.5 % (42.0-52.0); Hemoglobin 14.5 g/dL (14.0-18.0); Immature Granulocyte Absolute 0.09 K/mm3 (0.00-0.031); Immature Granulocyte Percent A 0.6 % (0-0.5); Lymphocytes Absolute Auto 1.29 K/mm3 (0.9-3.2); Lymphocytes Percent Auto 8.9 % (18.3-44.2); Mean Corpuscular HGB Conc 34.1 g/dl (32-36); Mean Corpuscular Hemoglobin 28.8 pg (26-34); Mean Corpuscular Volume 84.3 fl (80-100); Mean Platelet Volume 9.7 fl (7.4-10.4); Monocytes Absolute Auto 1.4 K/mm3 (0.1-0.6); Monocytes Percent Auto 9.8 % (2.6-8.5); Neutrophils Absolute Auto 11.4 K/mm3 (1.3-6.7); Neutrophils Percent Auto 79.1 % (45.5-73.1); Platelet Count Result 287 k/mm3 (150-375); Red Blood Count 5.04 M/mm3 (4.6-6.20); Red Cell Distribution Width 12.1 % (11.5-14.5); White Blood Count 14.5 K/mm3 (4.5-10.0)
[2019-03-26 06:36] LABS: Blood Urea Nitrogen 12 mg/dL (9-20); Calcium 8.8 mg/dL (8.4-10.2); Carbon Dioxide 24 mmol/L (22-30); Chloride 98 mmol/L (98-107); Estimated CRCL calculation 123 ml/min; Estimated Glomerular Filt Rate > 60; Glucose 189 mg/dL (75-110); Magnesium 2.1 mg/dL (1.6-2.3); Potassium 3.5 mmol/L (3.4-5.0); Sodium 134 mmol/L (137-145)
--- NOTE | 2019-03-26 07:54 | PC.NURSE ---
Changed NG suction from regular to LIS. Patient states that he changed the suction settings himself. I have educated the patient on the importance of not adjusting medical equipment and the risks involved. Yany Dueñas RN present during this time.
--- NOTE | 2019-03-26 08:25 | WPDGIPROGNO ---
Progress Note: A&P Additional Plan Patient feels improvement this morning. He passed several bowel movements during the night. Alert. Vital signs are stable. He is afebrile. Abdomen is much softer on exam. Bowel sounds are present today. WBC 14.5. Impression ileus appears to be resolving. Etiology for ileus remains unclear. This may really related to narcotic use. Plan is to discontinue NG tube and slowly reintroduce diet. Initially he will be given liquid diet. Consider Reglan if necessary. Subjective Date/time seen: 03/26/19 08:25 Objective Data Vital Signs Vital Signs: Vital Signs - 24 hr 03/25/19 14:10 03/25/19 22:00 03/26/19 06:00 Temperature 36.5 C 36.9 C 36.6 C Pulse Rate 94 92 98 Respiratory Rate 16 18 18 Blood Pressure 160/73 H 162/90 H 171/85 H Pulse Oximetry 95 96 96 Intake/Output Intake/Output: Intake & Output 03/23/19 03/24/19 03/25/19 03/26/19 23:59 23:59 23:59 23:59 Intake Total 1150 4360 3090 1336 Output Total 2500 2450 1600 Balance 1150 1860 640 -264 Meds/Results Medications: Active Medications Generic Name Dose Route Start Last Admin Trade Name Freq PRN Reason Stop Dose Admin Acetaminophen 650 mg 03/23/19 16:00 03/23/19 21:04 Tylenol Tablet PO 650 mg Q6H PRN Administration Mild Pain (1-3) or Fever Hydrocodone Bitart/Acetaminophen 1 tab 03/23/19 16:00 03/25/19 02:58 [place] 5-325 Mg PO 1 tab Q6H PRN Administration Pain Rated 4-6 Dextrose 12.5 gm 03/23/19 22:35 Dextrose 50% Syringe IV PUSH PRN PRN Hypoglycemia Protocol Famotidine 20 mg 03/24/19 09:00 03/25/19 22:09 Pepcid Iv IV PUSH 20 mg Q12HR MANJU Administration Glucagon 1 mg 03/23/19 22:35 Glucagon For Inj IM PRN PRN Hypoglycemia Protocol Glucose 15 gm 03/23/19 22:35 Glutose 15 PO PRN PRN Hypoglycemia Protocol Hydralazine HCl 5 mg 03/25/19 17:03 03/25/19 22:22 Apresoline Hcl Inj IV PUSH 5 mg Q8H PRN Administration Blood Pressure - High >160/100 Sodium Chloride 1,000 mls @ 100 mls/hr 03/23/19 14:40 03/26/19 06:53 Normal Saline Iv IV CONT 100 mls/hr .Q10H MANJU Infusion Dextrose 1,000 mls @ 100 mls/hr 03/23/19 22:35 Dextrose 5% 1,000 Ml IVPB PRN PRN Hypoglycemia Protocol Insulin Aspart 4 - 8 units 03/24/19 08:00 03/25/19 17:25 Novolog SUB-Q Not Given TIDWM [facility] Protocol Morphine Sulfate 2 mg 03/23/19 16:00 03/26/19 06:51 Morphine Sulfate Inj IV PUSH 2 mg Q4H PRN Administration Pain Rated 7-10 Radiology Results: ITS Impressions Abdomen/Pelvis CT 03/23/19 12:29 IMPRESSION: 1. Mild left hydronephrosis. 2. Left inguinal hernia containing fat. Chest X-Ray 03/23/19 12:52 IMPRESSION: 1. Mild atelectasis in the lower lung zones. Abdomen X-Ray 03/25/19 08:43 IMPRESSION: 1: [NG tube tip in the stomach. Upper Quadrant Ultrasound 03/25/19 08:50 IMPRESSION: 1. Diffuse hepatic steatosis. Labs Labs: Laboratory Results - last 24 hr 03/25/19 03/25/19 03/25/19 08:49 11:53 17:25 WBC RBC Hgb Hct MCV MCH MCHC RDW Plt Count MPV Immature Gran % (Auto) Neut % (Auto) Lymph % (Auto) [place] % (Auto) Eos % (Auto) Baso % (Auto) Lymph # (Auto) [place] # (Auto) Eos # (Auto) Baso # (Auto) Abs Immat Gran (auto) Absolute Neuts (auto) Absolute Nucleated RBC Nucleated RBC % Sodium Potassium Chloride Carbon Dioxide BUN Creatinine Estim Creat Clear Calc Estimated GFR Glucose POC Capillary Glucose 182 H 175 H 168 H Calcium Magnesium 03/25/19 03/26/19 03/26/19 22:11 05:49 05:49 WBC 14.5 H RBC 5.04 Hgb 14.5 Hct 42.5 MCV 84.3 MCH 28.8 MCHC 34.1 RDW 12.1 Plt Count 287 MPV 9.7 Immature Gran % (Auto) 0.6 H Neut % (Auto) 79.1 H L
[2019-03-26] MEDS: FAMOTIDINE 20 MG/2 ML VIAL IV PUSH ×2 (09:39→21:07)
[2019-03-26 09:44] LABS: Glucose Point of Care 173 (65-105)
[2019-03-26] MEDS: METOCLOPRAMIDE HCL 10 MG/10 ML SOLN UDC 5 MG PO ×3 (13:28→21:06)
--- NOTE | 2019-03-26 13:43 | PM.PNGS ---
Progress Note: A&P Assessment and Plan (1) Abdominal pain, acute, left upper quadrant: Onset Date: ~03/22/19 Code(s): R10.12 - Left upper quadrant pain Status: Acute Assessment and Plan: Continue recommendations as per GI. No surgical causes for patient's pain identified so far. If nausea/vomiting return, may need either consider repeat CT or get small-bowel follow-through. Subjective Subjective Date/Time Seen: 03/26/19 13:43 NG removed this morning, and patient currently on clear liquids. He is ambulating in the halls. No nausea or vomiting so far. No further abdominal pain. Exam GI: Inspection: normal to inspection and obesity GI Palp: No abdominal tenderness, Yes soft and No guarding Percussion: Yes normal to percussion Auscultation: normal bowel sounds Objective Data Vital Signs Vital Signs: Vital Signs - 24 hr 03/25/19 14:10 03/25/19 22:00 03/26/19 06:00 Temperature 36.5 C 36.9 C 36.6 C Pulse Rate 94 92 98 Respiratory Rate 16 18 18 Blood Pressure 160/73 H 162/90 H 171/85 H Pulse Oximetry 95 96 96 Intake/Output Intake/Output: Intake & Output 03/23/19 03/24/19 03/25/19 03/26/19 23:59 23:59 23:59 23:59 Intake Total 1150 4360 3090 2000 Output Total 2500 2450 1600 Balance 1150 1860 640 400 Meds/Results Medications: Active Medications Generic Name Dose Route Start Last Admin Trade Name Freq PRN Reason Stop Dose Admin Acetaminophen 650 mg 03/23/19 16:00 03/23/19 21:04 Tylenol Tablet PO 650 mg Q6H PRN Administration Mild Pain (1-3) or Fever Hydrocodone Bitart/Acetaminophen 1 tab 03/23/19 16:00 03/25/19 02:58 [place] 5-325 Mg PO 1 tab Q6H PRN Administration Pain Rated 4-6 Dextrose 12.5 gm 03/23/19 22:35 Dextrose 50% Syringe IV PUSH PRN PRN Hypoglycemia Protocol Famotidine 20 mg 03/24/19 09:00 03/26/19 09:39 Pepcid Iv IV PUSH 20 mg Q12HR MANJU Administration Glucagon 1 mg 03/23/19 22:35 Glucagon For Inj IM PRN PRN Hypoglycemia Protocol Glucose 15 gm 03/23/19 22:35 Glutose 15 PO PRN PRN Hypoglycemia Protocol Hydralazine HCl 5 mg 03/25/19 17:03 03/25/19 22:22 Apresoline Hcl Inj IV PUSH 5 mg Q8H PRN Administration Blood Pressure - High >160/100 Sodium Chloride 1,000 mls @ 100 mls/hr 03/23/19 14:40 03/26/19 13:29 Normal Saline Iv IV CONT 100 mls/hr .Q10H MANJU Administration Dextrose 1,000 mls @ 100 mls/hr 03/23/19 22:35 Dextrose 5% 1,000 Ml IVPB PRN PRN Hypoglycemia Protocol Insulin Aspart 4 - 8 units 03/24/19 08:00 03/26/19 12:31 Novolog SUB-Q Not Given TIDWM MANJU Protocol Metoclopramide HCl 5 mg 03/26/19 11:30 03/26/19 13:28 Reglan Liquid PO 5 mg ACHS MANJU Administration Morphine Sulfate 2 mg 03/23/19 16:00 03/26/19 06:51 Morphine Sulfate Inj IV PUSH 2 mg Q4H PRN Administration Pain Rated 7-10 Radiology Results: ITS Impressions Abdomen/Pelvis CT 03/23/19 12:29 IMPRESSION: 1. Mild left hydronephrosis. 2. Left inguinal hernia containing fat. Chest X-Ray 03/23/19 12:52 IMPRESSION: 1. Mild atelectasis in the lower lung zones. Upper Quadrant Ultrasound 03/25/19 08:50 IMPRESSION: 1. Diffuse hepatic steatosis. Abdomen X-Ray 03/26/19 08:40 IMPRESSION: 1. Gaseous distention of the ascending and transverse colon, consistent with adynamic ileus. Labs Labs: Laboratory Results - last 24 hr 03/25/19 03/25/19 03/26/19 17:25 22:11 05:49 WBC 14.5 H RBC 5.04 Hgb 14.5 Hct 42.5 MCV 84.3 MCH 28.8 MCHC 34.1 RDW 12.1 Plt Count 287 MPV 9.7 Immature Gran % (Auto) 0.6 H Neut % (Auto) 79.1 H Lymph % (Auto) 8.9 L [place] % (Auto) 9.8 H Eos % (Auto) 1.2 Baso % (Auto) 0.4 Lymph # (Auto) 1.29 [place] # (Auto) 1.4 H Eos # (Auto) 0.2 Baso # (Auto) 0.1 Abs Immat Gran (auto) 0.09 H Abso
[2019-03-26 14:00] VITALS: BP 165/92; PULSE 80; RESP 21; TEMP 37.1; O2SAT 97
--- NOTE | 2019-03-26 15:43 | PM.IMPN ---
Progress Note: A&P Assessment and Plan (1) Abdominal pain, acute, left upper quadrant: Onset Date: ~03/22/19 Code(s): R10.12 - Left upper quadrant pain Status: Acute Assessment and Plan: Pt has a ileus, pt had NG tube removed today. Pt started on clear diet today, hopeful discharge tomorrow. (2) Leukocytosis: Onset Date: ~03/23/19 Code(s): D72.829 - Elevated white blood cell count, unspecified Status: Acute Assessment and Plan: He does have a left shift. Wcc are high? secondary to stress response (3) Type 2 diabetes mellitus: Onset Date: Unknown Code(s): E11.9 - Type 2 diabetes mellitus without complications Status: Acute Assessment and Plan: Initiate sliding scale insulin, Accu-Cheks, and hypoglycemic protocol. (4) Hypertension: Onset Date: Unknown Code(s): I10 - Essential (primary) hypertension Status: Acute Assessment and Plan: Blood pressures were as high as 171/85 slightly improved Subjective Date/time seen: 03/26/19 15:43 John is a pleasant 58 year old male with hypertension and type 2 diabetes who presented to the emergency department earlier this afternoon from home for evaluation of abdominal pain. Pt describes severe lower left and right quadrant pain, CT abdo shows hernia and mild hydronephrosis. Kidney function is good and Ua is negative. Pt had abdominal distension and abdominal pain on admission, pt found to have a ileus. pt had NG tube removed to day. Pt had few bowel movements today, feels better abdomen more soft. Pt states he used to use alot of narcotics in the past and has some issues with constipation at home. Review of Systems Review of Systems: All systems reviewed & are unremarkable except as noted in HPI and below Gastrointestinal: Gastrointestinal: Reports abdominal pain, Reports bloating, Reports constipation, Reports excessive flatus, Denies diarrhea and Denies vomiting Exam Narrative: Exam Narrative: General: A well-developed HEENT: Normocephalic Neck: Supple Respiratory: Lungs are clear to auscultation bilaterally Cardiovascular: Regular rate and rhythm with S1-S2. No murmur, rub, or gallop Gastrointestinal: Abdomen is soft, obese, distended, distant bowel sounds Skin: Warm and dry Extremities: No cyanosis or clubbing Neurological: Alert. Cranial nerves 2-12 are grossly intact. No gross focal deficits to casual conversation Psychiatric: Pleasant and cooperative with normal mood and affect Objective Data Vital Signs Vital Signs: Vital Signs - 24 hr 03/25/19 22:00 03/26/19 06:00 Temperature 36.9 C 36.6 C Pulse Rate 92 98 Respiratory Rate 18 18 Blood Pressure 162/90 H 171/85 H Pulse Oximetry 96 96 Intake/Output Intake/Output: Intake & Output 03/23/19 03/24/19 03/25/19 03/26/19 23:59 23:59 23:59 23:59 Intake Total 1150 4360 3090 2000 Output Total 2500 2450 1600 Balance 1150 1860 640 400 Meds/Results Medications: Active Medications Generic Name Dose Route Start Last Admin Trade Name Freq PRN Reason Stop Dose Admin Acetaminophen 650 mg 03/23/19 16:00 03/23/19 21:04 Tylenol Tablet PO 650 mg Q6H PRN Administration Mild Pain (1-3) or Fever Hydrocodone Bitart/Acetaminophen 1 tab 03/23/19 16:00 03/25/19 02:58 [place] 5-325 Mg PO 1 tab Q6H PRN Administration Pain Rated 4-6 Dextrose 12.5 gm 03/23/19 22:35 Dextrose 50% Syringe IV PUSH PRN PRN Hypoglycemia Protocol Famotidine 20 mg 03/24/19 09:00 03/26/19 09:39 Pepcid Iv IV PUSH 20 mg Q12HR MANJU Administration Glucagon 1 mg
[2019-03-26 16:44] LABS: Glucose Point of Care 188 (65-105)
[2019-03-26 22:00] VITALS: BP 166/82; PULSE 87; RESP 18; TEMP 37.1; O2SAT 95
[2019-03-26 22:25] LABS: Glucose Point of Care 196 (65-105)
[2019-03-27] MEDS: MORPHINE SULFATE 2 MG/ML INJ IV PUSH ×2 (00:22→06:05)
[2019-03-27 02:04] VITALS: BP 167/79; PULSE 94
[2019-03-27] MEDS: hydrALAZINE HCL 20 MG/ML VIAL 5 MG IV PUSH (02:07)
[2019-03-27 06:00] VITALS: BP 180/84; PULSE 100; RESP 20; TEMP 36.6; O2SAT 97
[2019-03-27] MEDS: METOCLOPRAMIDE HCL 10 MG/10 ML SOLN UDC 5 MG PO ×4 (06:05→21:19)
[2019-03-27] MEDS: SODIUM CHLORIDE 0.9% IV 1,000 ML 50 ML IV CONT (06:17)
[2019-03-27 07:36] LABS: Glucose Point of Care 187 (65-105)
[2019-03-27] MEDS: FAMOTIDINE 20 MG/2 ML VIAL IV PUSH ×2 (08:37→21:20)
[2019-03-27 11:51] LABS: Glucose Point of Care 248 (65-105)
--- NOTE | 2019-03-27 12:11 | PM.IMPN ---
Progress Note: A&P Assessment and Plan (1) Abdominal pain, acute, left upper quadrant: Onset Date: ~03/22/19 Code(s): R10.12 - Left upper quadrant pain Status: Acute Assessment and Plan: Pt has a ileus, pt had NG tube removed yesterday, pt started on clears. Abdomen looks slightly distended today, KUB ordered again for tomorrow, KUB from today shows ileus. (2) Leukocytosis: Onset Date: ~03/23/19 Code(s): D72.829 - Elevated white blood cell count, unspecified Status: Acute Assessment and Plan: He does have a left shift. Wcc are high? secondary to stress response (3) Type 2 diabetes mellitus: Onset Date: Unknown Code(s): E11.9 - Type 2 diabetes mellitus without complications Status: Acute Assessment and Plan: Initiate sliding scale insulin, Accu-Cheks, and hypoglycemic protocol. (4) Hypertension: Onset Date: Unknown Code(s): I10 - Essential (primary) hypertension Status: Acute Assessment and Plan: Blood pressures are high 180/84 Subjective Date/time seen: 03/27/19 12:11 Interval history: John is a pleasant 58 year old male with hypertension and type 2 diabetes who presented to the emergency department earlier this afternoon from home for evaluation of abdominal pain. Pt describes severe lower left and right quadrant pain, CT abdo shows hernia and mild hydronephrosis. Kidney function is good and Ua is negative. Pt had abdominal distension and abdominal pain on admission, pt found to have a ileus. pt had NG tube removed yesterday. Pt had few bowel movements yesterday, started on clear diet. Pt abdomen is slightly distended again, I will order him a KUB. Pt states he used to use alot of narcotics in the past and has some issues with constipation at home. Review of Systems Review of Systems: All systems reviewed & are unremarkable except as noted in HPI and below Gastrointestinal: Gastrointestinal: Reports abdominal pain, Reports bloating, Reports constipation, Reports excessive flatus, Denies diarrhea and Denies vomiting Exam Narrative: Exam Narrative: General: A well-developed HEENT: Normocephalic Neck: Supple Respiratory: Lungs are clear to auscultation bilaterally Cardiovascular: Regular rate and rhythm with S1-S2. No murmur, rub, or gallop Gastrointestinal: Abdomen is soft, obese, distended, distant bowel sounds Skin: Warm and dry Extremities: No cyanosis or clubbing Neurological: Alert. Cranial nerves 2-12 are grossly intact. No gross focal deficits to casual conversation Psychiatric: Pleasant and cooperative with normal mood and affect Objective Data Vital Signs Vital Signs: Vital Signs - 24 hr 03/26/19 14:00 03/26/19 22:00 03/27/19 02:04 Temperature 37.1 C 37.1 C Pulse Rate 80 87 94 Respiratory Rate 21 H 18 Blood Pressure 165/92 H 166/82 H 167/79 H Pulse Oximetry 97 95 03/27/19 06:00 Temperature 36.6 C Pulse Rate 100 Respiratory Rate 20 Blood Pressure 180/84 H Pulse Oximetry 97 Intake/Output Intake/Output: Intake & Output 03/24/19 03/25/19 03/26/19 03/27/19 23:59 23:59 23:59 23:59 Intake Total 4360 3090 4700 684 Output Total 2500 2450 2500 1000 Balance 1273 211 26381 165 9082 -573 Meds/Results Medications: Active Medications Generic Name Dose Route Start Last Admin Trade Name Freq PRN Reason Stop Dose Admin Acetaminophen 650 mg 03/23/19 16:00 03/23/19 21:04 Tylenol Tablet PO 650 mg Q6H PRN Administration Mild Pain (1-3) or Fever Hydrocodone Bitart/Acetaminophen 1 tab 03/23/19 16:00 03/26/19 21:07 [place] 5-325 Mg PO 1 tab Q6H PRN
[2019-03-27] MEDS: INSULIN ASPART (*BKC) 100 UNITS/ML SUB-Q ×2 (12:28→16:53)
--- NOTE | 2019-03-27 13:44 | PM.PNGS ---
Progress Note: A&P Assessment and Plan (1) Abdominal pain, acute, left upper quadrant: Onset Date: ~03/22/19 Code(s): R10.12 - Left upper quadrant pain Status: Acute Assessment and Plan: Patient continues to slowly improve. He is tolerating a clear liquid diet. Will advance to full liquid diet. Stimulate bowels with MiraLax. No surgical indications at this time. Subjective Subjective Date/Time Seen: 03/27/19 13:44 Patient is tolerating clear liquid diet. He denies any nausea or vomiting. He states he has not had a bowel movement for 4 days. He also admits to using a lot of ibuprofen and Tylenol when he began having mid and lower back pain. He thinks this may have started his stomach pains. Exam GI: Inspection: distended and obesity GI Palp: No abdominal tenderness, Yes firm and No guarding Percussion: Yes tympanic to percussion Objective Data Vital Signs Vital Signs: Vital Signs - 24 hr 03/26/19 14:00 03/26/19 22:00 03/27/19 02:04 Temperature 37.1 C 37.1 C Pulse Rate 80 87 94 Respiratory Rate 21 H 18 Blood Pressure 165/92 H 166/82 H 167/79 H Pulse Oximetry 97 95 03/27/19 06:00 Temperature 36.6 C Pulse Rate 100 Respiratory Rate 20 Blood Pressure 180/84 H Pulse Oximetry 97 Intake/Output Intake/Output: Intake & Output 03/24/19 03/25/19 03/26/19 03/27/19 23:59 23:59 23:59 23:59 Intake Total 4360 3090 4700 684 Output Total 2500 2450 2500 1000 Balance 8941 632 6020 -316 Meds/Results Medications: Active Medications Generic Name Dose Route Start Last Admin Trade Name Freq PRN Reason Stop Dose Admin Acetaminophen 650 mg 03/23/19 16:00 03/23/19 21:04 Tylenol Tablet PO 650 mg Q6H PRN Administration Mild Pain (1-3) or Fever Hydrocodone Bitart/Acetaminophen 1 tab 03/23/19 16:00 03/26/19 21:07 [place] 5-325 Mg PO 1 tab Q6H PRN Administration Pain Rated 4-6 Dextrose 12.5 gm 03/23/19 22:35 Dextrose 50% Syringe IV PUSH PRN PRN Hypoglycemia Protocol Famotidine 20 mg 03/24/19 09:00 03/27/19 08:37 Pepcid Iv IV PUSH 20 mg Q12HR MANJU Administration Glucagon 1 mg 03/23/19 22:35 Glucagon For Inj IM PRN PRN Hypoglycemia Protocol Glucose 15 gm 03/23/19 22:35 Glutose 15 PO PRN PRN Hypoglycemia Protocol Hydralazine HCl 5 mg 03/25/19 17:03 03/27/19 02:07 Apresoline Hcl Inj IV PUSH 5 mg Q8H PRN Administration Blood Pressure - High >160/100 Dextrose 1,000 mls @ 100 mls/hr 03/23/19 22:35 Dextrose 5% 1,000 Ml IVPB PRN PRN Hypoglycemia Protocol Insulin Aspart 4 - 8 units 03/24/19 08:00 03/27/19 12:28 Novolog SUB-Q 4 units TIDWM MANJU Administration Protocol Metoclopramide HCl 5 mg 03/26/19 11:30 03/27/19 11:46 Reglan Liquid PO 5 mg ACHS MANJU Administration Morphine Sulfate 2 mg 03/23/19 16:00 03/27/19 06:05 Morphine Sulfate Inj IV PUSH 2 mg Q4H PRN Administration Pain Rated 7-10 Radiology Results: ITS Impressions Abdomen/Pelvis CT 03/23/19 12:29 IMPRESSION: 1. Mild left hydronephrosis. 2. Left inguinal hernia containing fat. Chest X-Ray 03/23/19 12:52 IMPRESSION: 1. Mild atelectasis in the lower lung zones. Upper Quadrant Ultrasound 03/25/19 08:50 IMPRESSION: 1. Diffuse hepatic steatosis. Abdomen X-Ray 03/26/19 08:40 IMPRESSION: 1. Gaseous distention of the ascending and transverse colon, consistent with adynamic ileus. Labs Labs: Laboratory Results - last 24 hr 03/26/19 03/26/19 03/27/19 16:31 21:13 07:32 POC Capillary Glucose 188 H 196 H 187 H 03/27/19 11:48 POC Capillary Glucose 248 H Quality VTE Prophylaxis VTE prophylaxis: mechanical ordered
--- NOTE | 2019-03-27 13:59 | WPDGIPROGNO ---
Progress Note: A&P Additional Plan GI Gavin for [facility] 27 Mar 2019 Passing gas. Tolerating clears. No abdominal pain, nausea or vomiting. No BM x 2 days vss. No EVE distended but NT Stool H pylori Ag pending 03-23 CT with hydronephrosis and left inguinal hernia 03-25-2019 RUQ U/S with hepatic steatosis 03-26-2019 KUB with ileus 03-25-2019 LFT's and ;lipase normal A/P A. Ileus: - Likely secondary to narcotics - Increase bowel regimen - Increase diet after patient starts having BM's B. Hepatic Steatosis: - LFT's normal - Observe Further recommendations per Dr. Downing. Thanks, [facility] [phone] Subjective Date/time seen: 03/27/19 13:59 Objective Data Vital Signs Vital Signs: Vital Signs - 24 hr 03/26/19 14:00 03/26/19 22:00 03/27/19 02:04 Temperature 37.1 C 37.1 C Pulse Rate 80 87 94 Respiratory Rate 21 H 18 Blood Pressure 165/92 H 166/82 H 167/79 H Pulse Oximetry 97 95 03/27/19 06:00 Temperature 36.6 C Pulse Rate 100 Respiratory Rate 20 Blood Pressure 180/84 H Pulse Oximetry 97 Intake/Output Intake/Output: Intake & Output 03/24/19 03/25/19 03/26/19 03/27/19 23:59 23:59 23:59 23:59 Intake Total 4360 3090 4700 684 Output Total 2500 2450 2500 1000 Balance 7089 660 4261 -316 Meds/Results Medications: Active Medications Generic Name Dose Route Start Last Admin Trade Name Freq PRN Reason Stop Dose Admin Acetaminophen 650 mg 03/23/19 16:00 03/23/19 21:04 Tylenol Tablet PO 650 mg Q6H PRN Administration Mild Pain (1-3) or Fever Hydrocodone Bitart/Acetaminophen 1 tab 03/23/19 16:00 03/26/19 21:07 [place] 5-325 Mg PO 1 tab Q6H PRN Administration Pain Rated 4-6 Dextrose 12.5 gm 03/23/19 22:35 Dextrose 50% Syringe IV PUSH PRN PRN Hypoglycemia Protocol Famotidine 20 mg 03/24/19 09:00 03/27/19 08:37 Pepcid Iv IV PUSH 20 mg Q12HR MANJU Administration Glucagon 1 mg 03/23/19 22:35 Glucagon For Inj IM PRN PRN Hypoglycemia Protocol Glucose 15 gm 03/23/19 22:35 Glutose 15 PO PRN PRN Hypoglycemia Protocol Hydralazine HCl 5 mg 03/25/19 17:03 03/27/19 02:07 Apresoline Hcl Inj IV PUSH 5 mg Q8H PRN Administration Blood Pressure - High >160/100 Dextrose 1,000 mls @ 100 mls/hr 03/23/19 22:35 Dextrose 5% 1,000 Ml IVPB PRN PRN Hypoglycemia Protocol Insulin Aspart 4 - 8 units 03/24/19 08:00 03/27/19 12:28 Novolog SUB-Q 4 units TIDWM MANJU Administration Protocol Magnesium Citrate 300 ml 03/27/19 13:58 Citrate Of Magnesia PO 03/27/19 13:59 ONCE ONE Metoclopramide HCl 5 mg 03/26/19 11:30 03/27/19 11:46 Reglan Liquid PO 5 mg ACHS MANJU Administration Morphine Sulfate 2 mg 03/23/19 16:00 03/27/19 06:05 Morphine Sulfate Inj IV PUSH 2 mg Q4H PRN Administration Pain Rated 7-10 Radiology Results: ITS Impressions Abdomen/Pelvis CT 03/23/19 12:29 IMPRESSION: 1. Mild left hydronephrosis. 2. Left inguinal hernia containing fat. Chest X-Ray 03/23/19 12:52 IMPRESSION: 1. Mild atelectasis in the lower lung zones. Upper Quadrant Ultrasound 03/25/19 08:50 IMPRESSION: 1. Diffuse hepatic steatosis. Abdomen X-Ray 03/26/19 08:40 IMPRESSION: 1. Gaseous distention of the ascending and transverse colon, consistent with adynamic ileus. Labs Labs: Laboratory Results - last 24 hr 03/26/19 03/26/19 03/27/19 16:31 21:13 07:32 POC Capillary Glucose 188 H 196 H 187 H 03/27/19 11:48 POC Capillary Glucose 248 H
[2019-03-27 14:32] VITALS: BP 167/85; PULSE 94; RESP 18; TEMP 38.1; O2SAT 94
[2019-03-27] MEDS: MAGNESIUM CITRATE 300 ML BTL PO (16:16)
[2019-03-27] MEDS: POLYETHYLENE GLYCOL 3350 17 GM POWD.PACK PO (16:49)
[2019-03-27 16:52] LABS: Glucose Point of Care 208 (65-105)
[2019-03-27 20:14] LABS: Glucose Point of Care 210 (65-105)
[2019-03-28] MEDS: hydrALAZINE HCL 20 MG/ML VIAL 5 MG IV PUSH (04:56)
[2019-03-28 05:01] VITALS: BP 171/79; PULSE 95
[2019-03-28 06:00] VITALS: BP 171/79; PULSE 95; RESP 18; TEMP 36.8; O2SAT 96
[2019-03-28] MEDS: METOCLOPRAMIDE HCL 10 MG/10 ML SOLN UDC 5 MG PO ×4 (06:17→21:01)
[2019-03-28 06:31] LABS: Hematocrit 41.4 % (42.0-52.0); Hemoglobin 14.3 g/dL (14.0-18.0); Mean Corpuscular HGB Conc 34.5 g/dl (32-36); Mean Corpuscular Hemoglobin 29.3 pg (26-34); Mean Corpuscular Volume 84.8 fl (80-100); Mean Platelet Volume 9.5 fl (7.4-10.4); Platelet Count Result 344 k/mm3 (150-375); Red Blood Count 4.88 M/mm3 (4.6-6.20); Red Cell Distribution Width 12.4 % (11.5-14.5); White Blood Count 19.6 K/mm3 (4.5-10.0)
[2019-03-28 06:43] LABS: Blood Urea Nitrogen 9 mg/dL (9-20); Calcium 8.6 mg/dL (8.4-10.2); Carbon Dioxide 24 mmol/L (22-30); Chloride 89 mmol/L (98-107); Estimated CRCL calculation 123 ml/min; Estimated Glomerular Filt Rate > 60; Glucose 198 mg/dL (75-110); Potassium 3.2 mmol/L (3.4-5.0); Sodium 124 mmol/L (137-145)
--- NOTE | 2019-03-28 08:24 | WPDGICN ---
Assessment and Plan Additional Plan Patient reports passing bowel movements over weekend. He denies any blood in his stools. He has tolerated liquid intake. Physical exam reveals patient to be alert. Comfortable at rest. HEENT exam unremarkable. Lungs are clear. Abdomen is still distended. Bowel sounds are present but less active. Distention and tympany is appreciated. Labs revealed blood cultures positive for Staph aureus. Impression 1 ileus. Ileus appears to be resolved. I suspect this is from narcotics. Patient has started a bowel regime with MiraLax. He remains somewhat distended however. 2. Leukocytosis. Etiology unclear. This may be related to ileus. Staph aureus in blood stream is noted. Patient now on vancomycin. Etiology for Staph unclear. 3. Hepatic steatosis. Normal LFTs noted. This will be followed conservatively at this time. Plan is to evaluate GI tract with lower GI and subsequently upper GI small-bowel follow-through. GI Consult Note Consult date/time: 03/28/19 08:24 HPI: Cali Lopez is a 58 year old male [facility] Past Medical History Medical History (Updated 03/23/19 @ 22:31 by Millie Rocha PA-C) Eczema History of depression Hyperlipidemia Hypertension (Unknown) Intervertebral disc rupture Osteoarthritis He has had stem cell injections into both knees. 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 History of testicular surgery For undescended testicle. Family History Family History Father Family history of heart disease in male family member before age 55 Family history of diabetes mellitus in first degree relative Acute myocardial infarction Cerebrovascular accident Mother Family history of heart disease in male family member before age 55 Social History Social History (Updated 03/23/19 @ 21:09 by Millie Rocha PA-C) Social History: The patient is originally from [place]. He lives with his in [place]. He has a remote smoking history and quit 1981. He has a history of alcohol abuse but has abstained for nearly 15 years. No drug use. He designates his as his surrogate decision maker and he wishes to be a full code. Smoking packs per day: 1 Smoking cigarettes per day: 20.0 Years smoked: 10 Smoking pack-years: 10.00 Smoking status: Former smoker Tobacco type: cigarettes Alcohol intake: former Substance use: never Gender identity (if verbalized by the patient): Male Spiritual care concerns: No Agree to blood products: Yes Meds Home Medications and Allergies Home Medications Medication Instructions Recorded Confirmed Type losartan 50 mg PO BID 03/23/19 03/23/19 History metformin 850 mg PO BID 03/23/19 03/23/19 History Allergies Allergy/AdvReac Type Severity Reaction Status Date / Time Penicillins Allergy Unknown Unknown Verified 03/23/19 11:23 Vital Signs Vital Signs - 24 hr 03/27/19 14:32 03/28/19 05:01 03/28/19 06:00 Temperature 38.1 C H 36.8 C Pulse Rate 94 95 95 Respiratory Rate 18 18 Blood Pressure 167/85 H 171/79 H 171/79 H Pulse Oximetry 94 96 Results Labs CBC & Chem 7: 03/28/19 05:58 03/28/19 05:58 Labs: Short CBC 03/28/19 Range/Units 05:58 WBC 19.6 H (4.5-10.0) K/mm3 Hgb 14.3 (14.0-18.0) g/dL Hct 41.4 L (42.0-52.0) % Plt Count 344 (150-375) k/mm3 BMP 03/28/19 05:58 Sodium 124 L Potassium 3.2 L Chloride 89 L Carbon Dioxide 24 BUN 9 Creatinine 0.80 Glucose 198 H Calcium 8.6
[2019-03-28] MEDS: FAMOTIDINE 20 MG/2 ML VIAL IV PUSH ×2 (08:28→21:01)
[2019-03-28] MEDS: POLYETHYLENE GLYCOL 3350 17 GM POWD.PACK PO ×2 (08:28→12:45)
[2019-03-28] MEDS: INSULIN ASPART (*BKC) 100 UNITS/ML SUB-Q (08:37)
[2019-03-28 08:38] LABS: Glucose Point of Care 295 (65-105)
[2019-03-28] MEDS: POTASSIUM CHLORIDE 20 MEQ PACKET (FOR LIQUID) 40 MEQ PO (10:03)
[2019-03-28 12:36] LABS: Glucose Point of Care 177 (65-105)
--- NOTE | 2019-03-28 12:51 | WPDINFPN2 ---
Progress Note: A&P Assessment and Plan (1) Staphylococcus aureus bacteremia with sepsis: Code(s): A41.01 - Sepsis due to Methicillin susceptible Staphylococcus aureus Status: Acute Assessment and Plan: S aureus bacteremia with infection REC L spine MRI, TTE, redo Bcs, vanc and ancef Subjective Date/time seen: 03/28/19 12:51 Objective Data Vital Signs Vital Signs: Vital Signs - 24 hr 03/27/19 14:32 03/28/19 05:01 03/28/19 06:00 Temperature 38.1 C H 36.8 C Pulse Rate 94 95 95 Respiratory Rate 18 18 Blood Pressure 167/85 H 171/79 H 171/79 H Pulse Oximetry 94 96 Intake/Output Intake/Output: Intake & Output 03/25/19 03/26/19 03/27/19 03/28/19 23:59 23:59 23:59 23:59 Intake Total 3090 4700 2044 1170 Output Total 2450 2500 1800 600 Balance 640 2200 244 570 Meds/Results Medications: Active Medications Generic Name Dose Route Start Last Admin Trade Name Freq PRN Reason Stop Dose Admin Acetaminophen 650 mg 03/23/19 16:00 03/23/19 21:04 Tylenol Tablet PO 650 mg Q6H PRN Administration Mild Pain (1-3) or Fever Hydrocodone Bitart/Acetaminophen 1 tab 03/23/19 16:00 03/26/19 21:07 [place] 5-325 Mg PO 1 tab Q6H PRN Administration Pain Rated 4-6 Dextrose 12.5 gm 03/23/19 22:35 Dextrose 50% Syringe IV PUSH PRN PRN Hypoglycemia Protocol Famotidine 20 mg 03/24/19 09:00 03/28/19 08:28 Pepcid Iv IV PUSH 20 mg Q12HR MANJU Administration Glucagon 1 mg 03/23/19 22:35 Glucagon For Inj IM PRN PRN Hypoglycemia Protocol Glucose 15 gm 03/23/19 22:35 Glutose 15 PO PRN PRN Hypoglycemia Protocol Hydralazine HCl 5 mg 03/25/19 17:03 03/28/19 04:56 Apresoline Hcl Inj IV PUSH 5 mg Q8H PRN Administration Blood Pressure - High >160/100 Dextrose 1,000 mls @ 100 mls/hr 03/23/19 22:35 Dextrose 5% 1,000 Ml IVPB PRN PRN Hypoglycemia Protocol Vancomycin HCl 2,000 mg in 500 mls @ 250 mls/hr 03/27/19 16:00 03/28/19 08:30 Vancomycin 2,000 Mg/D5w 500 Ml IVPB Infused Q12H MANJU Infusion Insulin Aspart 4 - 8 units 03/24/19 08:00 03/28/19 12:31 Novolog SUB-Q Not Given TIDWM [facility] Protocol Metoclopramide HCl 5 mg 03/26/19 11:30 03/28/19 11:44 Reglan Liquid PO 5 mg ACHS MANJU Administration Morphine Sulfate 2 mg 03/23/19 16:00 03/27/19 06:05 Morphine Sulfate Inj IV PUSH 2 mg Q4H PRN Administration Pain Rated 7-10 Polyethylene Glycol 17 gm 03/27/19 17:00 03/28/19 12:45 Miralax PO 17 gm QID MANJU Administration Radiology Results: ITS Impressions Abdomen/Pelvis CT 03/23/19 12:29 IMPRESSION: 1. Mild left hydronephrosis. 2. Left inguinal hernia containing fat. Chest X-Ray 03/23/19 12:52 IMPRESSION: 1. Mild atelectasis in the lower lung zones. Upper Quadrant Ultrasound 03/25/19 08:50 IMPRESSION: 1. Diffuse hepatic steatosis. Abdomen X-Ray 03/28/19 09:13 IMPRESSION: 1. Persistent gaseous distention of the ascending and transverse colon, likely adynamic ileus. Enema w/Water Soluble 03/28/19 12:08 IMPRESSION: 1. Findings consistent with adynamic ileus. Labs Labs: Laboratory Results - last 24 hr 03/27/19 03/27/19 03/28/19 16:48 20:03 05:58 WBC 19.6 H RBC 4.88 Hgb 14.3 Hct 41.4 L MCV 84.8 MCH 29.3 MCHC 34.5 RDW 12.4 Plt Count 344 MPV 9.5 Sodium Potassium Chloride Carbon Dioxide BUN Creatinine Estim Creat Clear Calc Estimated GFR Glucose POC Capillary Glucose 208 H 210 H Calcium 03/28/19 03/28/19 03/28/19 05:58 08:32 12:29 WBC RBC Hgb Hct MCV MCH MCHC RDW Plt Count MPV Sodium 124 L Potassium 3.2 L Chloride 89 L Carbon Dioxide 24 BUN 9 Creatinine 0.80 Estim Creat Clear Calc 123 Estimated GFR > 60 Glucose 198 H POC Capill
[2019-03-28] MEDS: ceFAZolin 2 GM/D5W 50 ML 2 GM/50 ML BAG IVPB ×2 (13:21→21:01)
[2019-03-28 14:00] VITALS: BP 163/72; PULSE 103; RESP 20; TEMP 36.8; O2SAT 94
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
--- NOTE | 2019-03-28 14:29 | PM.PNGS ---
Progress Note: A&P Assessment and Plan (1) Abdominal pain, acute, left upper quadrant: Onset Date: ~03/22/19 Code(s): R10.12 - Left upper quadrant pain Status: Acute Assessment and Plan: Bowel function has returning and he is symptomatically improving. Abdominal x-ray this morning showed persistently dilated ascending and transverse colon. Gastrografin enema showed evidence of adynamic ileus with dilated ascending and transverse colon with gradual tapering to normal sized colon in the descending, sigmoid, and rectum. Still having some bloating and abdominal pain after eating. Will keep him on full liquids today. Continue Miralax, changed to BID. No surgical indications at this time. (2) Staphylococcus aureus bacteremia with sepsis: Code(s): A41.01 - Sepsis due to Methicillin susceptible Staphylococcus aureus Status: Acute Assessment and Plan: WBC 19,600 today. ID consulted and appreciate recommendations. Patient on IV vancomycin. (3) Leukocytosis: Onset Date: ~03/23/19 Code(s): D72.829 - Elevated white blood cell count, unspecified Status: Acute (4) Type 2 diabetes mellitus: Onset Date: Unknown Code(s): E11.9 - Type 2 diabetes mellitus without complications Status: Acute (5) Hypertension: Onset Date: Unknown Code(s): I10 - Essential (primary) hypertension Status: Acute Subjective Subjective Date/Time Seen: 03/28/19 14:29 Patient reports: no new complaints, feels better, tolerating liquids well, flatus and bowel movement Interval history: Patient seen and examined. Reports feeling better today. Still feels bloated. Denies any current abdominal pain. Denies nausea or vomiting since the NG tube was removed. States he had about 14 bowel movements yesterday and already 5 bowel movements this morning prior to having the gastrografin enema. He does report having some generalized abdominal pain following eating but this resolves spontaneously. WBC up to 19,600 today. No other complaints at this time. Review of Systems Review of Systems: All systems reviewed & are unremarkable except as noted in HPI and below Exam Const: General: cooperative, no acute distress, alert and awake Nutritional Appearance: obese morbidly obese Orientation/consciousness: oriented x3 GI: Inspection: distended and obesity GI Palp: Yes soft, Yes tender (RUQ), No guarding and No rebound tenderness Auscultation: normal bowel sounds Neuro: General: moves all extremities and no focal motor deficits Psych: Affect: normal affect Attitude: cooperative Objective Data Vital Signs Vital Signs: Vital Signs - 24 hr 03/27/19 14:32 03/28/19 05:01 03/28/19 06:00 Temperature 38.1 C H 36.8 C Pulse Rate 94 95 95 Respiratory Rate 18 18 Blood Pressure 167/85 H 171/79 H 171/79 H Pulse Oximetry 94 96 Intake/Output Intake/Output: Intake & Output 03/25/19 03/26/19 03/27/19 03/28/19 23:59 23:59 23:59 23:59 Intake Total 3090 4700 2044 1170 Output Total 2450 2500 1800 600 Balance 640 2200 244 570 Meds/Results Medications: Active Medications Generic Name Dose Route Start Last Admin Trade Name Freq PRN Reason Stop Dose Admin Acetaminophen 650 mg 03/23/19 16:00 03/23/19 21:04 Tylenol Tablet PO 650 mg Q6H PRN Administration Mild Pain (1-3) or Fever Hydrocodone Bitart/Acetaminophen 1 tab 03/23/19 16:00 03/26/19 21:07 [place] 5-325 Mg PO 1 tab Q6H PRN Administration Pain Rated 4-6 Dextrose 12.5 gm 03/23/19 22:35 Dextrose 50% Syringe IV PUSH PRN PRN Hypoglycemia Protocol Famotidine 20 mg 03/24/19 09:00 03/28/19 08:28 Pepcid Iv IV PUSH 20 mg Q12HR MANJU Administration Glucagon 1 mg 03/23/19 22:35 Glucagon For Inj IM PRN PRN Hypoglycemia Protocol Glucose 15 gm 03/23/19 22:35 Glutose 15 PO PRN PRN Hypoglycemia Protocol Hydralazine HCl 5 mg
--- NOTE | 2019-03-28 16:58 | PM.IMPN ---
Progress Note: A&P Assessment and Plan (1) Abdominal pain, acute, left upper quadrant: Onset Date: ~03/22/19 Code(s): R10.12 - Left upper quadrant pain Status: Acute Assessment and Plan: John is a pleasant 58 year old male with hypertension and type 2 diabetes who presented to the emergency department on 03/23 from home for evaluation of abdominal pain. Pt describes severe lower left and right quadrant pain, CT abdo shows hernia and mild hydronephrosis. Kidney function was good and Ua is negative. Pt had abdominal distension and abdominal pain on admission, pt found to have a ileus. pt had NG tube removed on 03/26. Pt had few bowel movements on 03/26, was started on clear diet. Pt abdomen is slightly distended again, KUB to showed peristnet noe and seen by Surgery team increase milax to BID and continue clear liquids, . Pt states he used to use alot of narcotics in the past and has some issues with constipation at home. patient blood culture is positive for staph, seen by Dr. Lewis to futher evaluate ECHO, SAVAGE and MRI of lumbar spine to find the source of infection and started on Cefazolin and vancomycin, will need fpc abx. (2) Leukocytosis: Onset Date: ~03/23/19 Code(s): D72.829 - Elevated white blood cell count, unspecified Status: Acute Assessment and Plan: Most likely due to staph infection and plan is above (3) Type 2 diabetes mellitus: Onset Date: Unknown Code(s): E11.9 - Type 2 diabetes mellitus without complications Status: Acute Assessment and Plan: Initiate sliding scale insulin, Accu-Cheks, and hypoglycemic protocol. (4) Hypertension: Onset Date: Unknown Code(s): I10 - Essential (primary) hypertension Status: Acute Assessment and Plan: Blood pressures are high most likely due to pain and stress will monitor, Subjective Date/time seen: 03/28/19 16:58 Interval history: John is a pleasant 58 year old male with hypertension and type 2 diabetes who presented to the emergency department on 03/23 from home for evaluation of abdominal pain. Pt describes severe lower left and right quadrant pain, CT abdo shows hernia and mild hydronephrosis. Kidney function was good and Ua is negative. Pt had abdominal distension and abdominal pain on admission, pt found to have a ileus. pt had NG tube removed on 03/26. Pt had few bowel movements on 03/26, was started on clear diet. Pt abdomen is slightly distended again, KUB to showed peristnet noe and seen by Surgery team increase milax to BID and continue clear liquids, . Pt states he used to use alot of narcotics in the past and has some issues with constipation at home. patient blood culture is positive for staph, seen by Dr. 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 Review of Systems Review of Systems: All systems reviewed & are unremarkable except as noted in HPI and below Gastrointestinal: Gastrointestinal: Reports abdominal pain, Reports bloating, Reports constipation, Reports excessive flatus, Denies diarrhea and Denies vomiting Exam Narrative: Exam Narrative: General: A well-developed HEENT: Normocephalic Neck: Supple Respiratory: Lungs are clear to auscultation bilaterally Cardiovascular: Regular rate and rhythm with S1-S2. No murmur, rub, or gallop Gastrointestinal: Abdomen is soft, obese, distended, distant bowel sounds Skin: Warm and dry Extremities: No cyanosis or clubbing Neurological: Alert. Cranial nerves 2-12 are grossly intact. N
[2019-03-28 17:41] LABS: Glucose Point of Care 160 (65-105)
[2019-03-28 21:37] VITALS: BP 153/85; PULSE 85; RESP 16; TEMP 37.1; O2SAT 96
--- NOTE | 2019-03-29 | ECHO_ITS ---
Patient Info Name: Cali Lopez Age: 58 years : 1960 Gender: Male Ht: 71 in Wt: 305 lbs BSA: 2.70 m2 HR: 90 bpm BP: 150 / 76 mmHg Technical Quality: Fair Exam Date: 03/29/2019 10:12 AM Exam Location: [facility] Pulmonary Patient Status: Inpatient Admit Date: 03/25/2019 Staff Ordering Physician: Prabhu Lewis MD Bale Piler: Sergey Sylvester, ALXE, RT Attending Provider: Mike Blackburn MD Referring Physician: Painter CARLOTA; Exam Type: CA echo dop color flow w con Study Info Indications R65.20 - Severe sepsis without septic shock Complete two-dimensional, color flow and Doppler transthoracic echocardiogram is performed with contrast to opacify the left ventricle and to improve the deliniation of the left ventricle endocardial borders. Contrast/Agitated Saline Contrast/Ag. Saline: Definity Amount: 1.00 ml Administered By: Zak Nguyen, RN Summary 1. Left ventricular chamber dimension is normal. 2. Definity contrast administered improved wall motion interpretation. 3. Left ventricular systolic function is normal, estimated at 65-70%. 4. There is mildly increased left ventricular wall thickness. 5. The left ventricular diastolic function is grade I diastolic dysfunction. 6. E/e' 9 is minimally elevated. 7. There is mild aortic valve sclerosis. Left Ventricle E/e' 9 is minimally elevated. Definity contrast administered improved wall motion interpretation. Left ventricular chamber dimension is normal. Left ventricular systolic function is normal, estimated at 65-70%. There is mildly increased left ventricular wall thickness. The left ventricular diastolic function is grade I diastolic dysfunction. Right Ventricle Right ventricular chamber dimension is normal. Right ventricular systolic function is normal. Left Atria Left atrial chamber dimension is normal. Right Atria Right atrial chamber dimension is normal. Aortic Valve The aortic valve is trileaflet. There is mild aortic valve sclerosis. There is no aortic valve stenosis. There is no aortic valve regurgitation. Pulmonic Valve There is no pulmonic regurgitation. Mitral Valve There is no mitral valve stenosis. There is no mitral valve regurgitation. Tricuspid Valve The tricuspid valve leaflets are not well visualized. There is no tricuspid valve regurgitation. Pericardium/Pleural There is no pericardial effusion. Inferior Vena Cava Normal inferior vena cava with >50% collapse upon inspiration consistent with normal right atrial pressure, 5 mmHg. Aorta The aortic root size at the sinus of Valsalva is normal. Left Ventricular Outflow Tract Name Value Normal LVOT 2D LVOT Diameter 2.14 cm LVOT Doppler LVOT Peak Gradient 5 mmHg LVOT Mean Gradient 3 mmHg LVOT VTI 24.29 cm LVOT VTI/AV VTI Ratio 0.79 LVOT Stroke Volume 87.37 ml LVOT CO 6.96 l/min LVOT CI
[2019-03-29 02:10] LABS: Glucose Point of Care 230 (65-105)
[2019-03-29] MEDS: METOCLOPRAMIDE HCL 10 MG/10 ML SOLN UDC 5 MG PO ×4 (05:11→21:32)
[2019-03-29] MEDS: ceFAZolin 2 GM/D5W 50 ML 2 GM/50 ML BAG IVPB ×3 (05:11→21:32)
[2019-03-29 06:00] VITALS: BP 150/76; PULSE 90; RESP 20; TEMP 37.4; O2SAT 95
[2019-03-29 06:37] LABS: Hematocrit 41.2 % (42.0-52.0); Hemoglobin 13.9 g/dL (14.0-18.0); Mean Corpuscular HGB Conc 33.7 g/dl (32-36); Mean Corpuscular Hemoglobin 28.5 pg (26-34); Mean Corpuscular Volume 84.4 fl (80-100); Mean Platelet Volume 9.3 fl (7.4-10.4); Platelet Count Result 386 k/mm3 (150-375); Red Blood Count 4.88 M/mm3 (4.6-6.20); Red Cell Distribution Width 12.3 % (11.5-14.5); White Blood Count 17.8 K/mm3 (4.5-10.0)
[2019-03-29 07:52] LABS: Alanine Aminotransferase 50 U/L (4-50); Albumin Level 3.2 g/dL (3.5-5.1); Alkaline Phosphatase 109 U/L (38-126); Aspartate Amino Transferase 36 U/L (17-59); Blood Urea Nitrogen 10 mg/dL (9-20); Calcium 8.5 mg/dL (8.4-10.2); Carbon Dioxide 23 mmol/L (22-30); Chloride 89 mmol/L (98-107); Estimated CRCL calculation 139 ml/min; Estimated Glomerular Filt Rate > 60; Glucose 185 mg/dL (75-110); Potassium 3.3 mmol/L (3.4-5.0); Sodium 125 mmol/L (137-145)
[2019-03-29 07:54] LABS: Basophils Absolute Auto 0.1 K/mm3 (0.0-0.1); Basophils Percent Auto 0.6 % (0.2-1.2); Eosinophils Absolute Auto 0.8 K/mm3 (0-0.3); Eosinophils Percent Auto 4.2 % (0-4.4); Hematocrit 40.9 % (42.0-52.0); Immature Granulocyte Absolute 0.29 K/mm3 (0.00-0.031); Immature Granulocyte Percent A 1.6 % (0-0.5); Lymphocytes Absolute Auto 1.88 K/mm3 (0.9-3.2); Lymphocytes Percent Auto 10.6 % (18.3-44.2); Mean Corpuscular HGB Conc 34.2 g/dl (32-36); Mean Corpuscular Volume 84.9 fl (80-100); Mean Platelet Volume 9.6 fl (7.4-10.4); Monocytes Absolute Auto 2.1 K/mm3 (0.1-0.6); Monocytes Percent Auto 11.9 % (2.6-8.5); Neutrophils Absolute Auto 12.5 K/mm3 (1.3-6.7); Neutrophils Percent Auto 71.1 % (45.5-73.1); Platelet Count Result 396 k/mm3 (150-375); Red Blood Count 4.82 M/mm3 (4.6-6.20); Red Cell Distribution Width 12.4 % (11.5-14.5); White Blood Count 17.7 K/mm3 (4.5-10.0)
[2019-03-29 08:37] LABS: Glucose Point of Care 190 (65-105)
[2019-03-29] MEDS: FAMOTIDINE 20 MG/2 ML VIAL IV PUSH ×2 (09:36→21:32)
[2019-03-29] MEDS: POLYETHYLENE GLYCOL 3350 17 GM POWD.PACK PO (09:36)
--- NOTE | 2019-03-29 10:01 | WPDGIPROGNO ---
Progress Note: A&P Additional Plan Patient is tolerating diet. He continues to pass bowel movement without difficulty. Abdomen has become much softer. Physical exam reveals his abdomen to be obese. Bowel sounds are present. Soft with no masses identified. Gastrografin lower GI reveals no obstruction. Impression 1. Ileus. This is now resolved. [place] to be related to narcotic use. 2. Leukocytosis. Patient does have staphylococcal is growing from blood culture bottles. appreciate infectious disease input. 3. Diabetes mellitus. 4. Chronic back pain. Plan is to advance diet as tolerated. No additional GI workup planned unless unable to maintain oral intake. Subjective Date/time seen: 03/29/19 10:01 Objective Data Vital Signs Vital Signs: Vital Signs - 24 hr 03/28/19 14:00 03/28/19 21:37 03/29/19 06:00 Temperature 36.8 C 37.1 C 37.4 C Pulse Rate 103 H 85 90 Respiratory Rate 20 16 20 Blood Pressure 163/72 H 153/85 H 150/76 H Pulse Oximetry 94 96 95 Intake/Output Intake/Output: Intake & Output 03/26/19 03/27/19 03/28/19 03/29/19 23:59 23:59 23:59 23:59 Intake Total 4700 2044 1990 1200 Output Total 2500 1800 1500 800 Balance 2200 244 490 400 Meds/Results Medications: Active Medications Generic Name Dose Route Start Last Admin Trade Name Freq PRN Reason Stop Dose Admin Acetaminophen 650 mg 03/23/19 16:00 03/23/19 21:04 Tylenol Tablet PO 650 mg Q6H PRN Administration Mild Pain (1-3) or Fever Hydrocodone Bitart/Acetaminophen 1 tab 03/23/19 16:00 03/26/19 21:07 [place] 5-325 Mg PO 1 tab Q6H PRN Administration Pain Rated 4-6 Dextrose 12.5 gm 03/23/19 22:35 Dextrose 50% Syringe IV PUSH PRN PRN Hypoglycemia Protocol Famotidine 20 mg 03/24/19 09:00 03/29/19 09:36 Pepcid Iv IV PUSH 20 mg Q12HR MANJU Administration Glucagon 1 mg 03/23/19 22:35 Glucagon For Inj IM PRN PRN Hypoglycemia Protocol Glucose 15 gm 03/23/19 22:35 Glutose 15 PO PRN PRN Hypoglycemia Protocol Hydralazine HCl 5 mg 03/25/19 17:03 03/28/19 04:56 Apresoline Hcl Inj IV PUSH 5 mg Q8H PRN Administration Blood Pressure - High >160/100 Dextrose 1,000 mls @ 100 mls/hr 03/23/19 22:35 Dextrose 5% 1,000 Ml IVPB PRN PRN Hypoglycemia Protocol Cefazolin Sodium 2 gm in 50 mls @ 100 mls/hr 03/28/19 13:00 03/29/19 05:11 Ancef 2 Gm/D5w 50 Ml IVPB 100 mls/hr Q8HR MANJU Administration Insulin Aspart 4 - 8 units 03/24/19 08:00 03/29/19 09:34 Novolog SUB-Q Not Given TIDWM [facility] Protocol Metoclopramide HCl 5 mg 03/26/19 11:30 03/29/19 05:11 Reglan Liquid PO 5 mg ACHS MANJU Administration Morphine Sulfate 2 mg 03/23/19 16:00 03/27/19 06:05 Morphine Sulfate Inj IV PUSH 2 mg Q4H PRN Administration Pain Rated 7-10 Polyethylene Glycol 17 gm 03/28/19 17:00 03/29/19 09:36 Miralax PO 17 gm BID MANJU Administration Silicone 0 each 03/29/19 09:00 Mepilex Border 4x4 TOPICAL DAILY [facility] Silver Nitrate 1 applic 03/29/19 09:00 Silvergel TOPICAL DAILY [facility] Radiology Results: ITS Impressions Abdomen/Pelvis CT 03/23/19 12:29 IMPRESSION: 1. Mild left hydronephrosis. 2. Left inguinal hernia containing fat. Chest X-Ray 03/23/19 12:52 IMPRESSION: 1. Mild atelectasis in the lower lung zones. Upper Quadrant Ultrasound 03/25/19 08:50 IMPRESSION: 1. Diffuse hepatic steatosis. Abdomen X-Ray 03/28/19 09:13 IMPRESSION: 1. Persistent gaseous distention of the ascending and transverse colon, likely adynamic ileus. Enema w/Water Soluble 03/28/19 12:08 IMPRESSION: 1. Findings consistent with adynamic ileus. Lumbar Spine MRI 03/28/19 14:59 IMPRESSION: 1. Severe lower lumbar spondylosis. Labs Labs: Laboratory Results - last 24 hr 03/28/19 03/28/19 03/28/19 12:29 17:36 21:33 WBC RBC
[2019-03-29] MEDS: PERFLUTREN LIPID MICROSPHERES 1.5 ML VIAL DILUTED TO 10 ML TOTAL VOLUME (10:52)
[2019-03-29] MEDS: SILVERGEL (ELTA) 45 ML 1 APPLIC TOPICAL (13:31)
[2019-03-29] MEDS: POTASSIUM CHLORIDE 20 MEQ PACKET (FOR LIQUID) 40 MEQ PO (13:34)
[2019-03-29 13:42] LABS: Glucose Point of Care 202 (65-105)
[2019-03-29 14:00] VITALS: BP 144/90; PULSE 84; RESP 19; TEMP 36.6; O2SAT 95
--- NOTE | 2019-03-29 14:00 | PM.PNGS ---
Progress Note: A&P Assessment and Plan (1) Abdominal pain, acute, left upper quadrant: Onset Date: ~03/22/19 Code(s): R10.12 - Left upper quadrant pain Status: Acute Assessment and Plan: Patient continues to improve and his bowels are moving. The ileus seems to be resolving. He has been advanced to a regular diabetic diet. Continue Miralax No surgical indications. We will sign off the patient's case at this time. Please let us know if you need anything in the future. No f/u needed. (2) Staphylococcus aureus bacteremia with sepsis: Code(s): A41.01 - Sepsis due to Methicillin susceptible Staphylococcus aureus Status: Acute Assessment and Plan: WBC down today. Blood cultures positive for staphylococcus aureus. Continue IV antibiotics per ID. (3) Leukocytosis: Onset Date: ~03/23/19 Code(s): D72.829 - Elevated white blood cell count, unspecified Status: Acute (4) Type 2 diabetes mellitus: Onset Date: Unknown Code(s): E11.9 - Type 2 diabetes mellitus without complications Status: Acute (5) Hypertension: Onset Date: Unknown Code(s): I10 - Essential (primary) hypertension Status: Acute Additional Plan Stool to be sent for H pylori when patient has a bowel movement Subjective Subjective Date/Time Seen: 03/29/19 13:00 Patient reports: no new complaints, feels better, flatus and bowel movement Interval history: Patient reports feeling much better today. Denies any abdominal pain, nausea, or vomiting. Reports he still feels somewhat bloated but he feels this is his baseline and he is chronically bloated. He has had multiple bowel movements today that are liquid, along with passing a lot of gas. No other complaints at this time. Review of Systems Review of Systems: All systems reviewed & are unremarkable except as noted in HPI and below Exam Const: General: no acute distress Orientation/consciousness: oriented x3 GI: Inspection: obesity and other (large protuberant abdomen) GI Palp: Yes soft, No tender, No guarding and No rebound tenderness Auscultation: normal bowel sounds Neuro: General: oriented x3, moves all extremities and no focal motor deficits Psych: Mental Status: mental status grossly normal Affect: normal affect Attitude: cooperative Objective Data Vital Signs Vital Signs: Vital Signs - 24 hr 03/28/19 21:37 03/29/19 06:00 Temperature 37.1 C 37.4 C Pulse Rate 85 90 Respiratory Rate 16 20 Blood Pressure 153/85 H 150/76 H Pulse Oximetry 96 95 Intake/Output Intake/Output: Intake & Output 03/26/19 03/27/19 03/28/19 03/29/19 23:59 23:59 23:59 23:59 Intake Total 4700 2044 1990 1200 Output Total 2500 1800 1500 800 Balance 2200 244 490 400 Meds/Results Medications: Active Medications Generic Name Dose Route Start Last Admin Trade Name Freq PRN Reason Stop Dose Admin Acetaminophen 650 mg 03/23/19 16:00 03/23/19 21:04 Tylenol Tablet PO 650 mg Q6H PRN Administration Mild Pain (1-3) or Fever Hydrocodone Bitart/Acetaminophen 1 tab 03/23/19 16:00 03/26/19 21:07 [place] 5-325 Mg PO 1 tab Q6H PRN Administration Pain Rated 4-6 Dextrose 12.5 gm 03/23/19 22:35 Dextrose 50% Syringe IV PUSH PRN PRN Hypoglycemia Protocol Famotidine 20 mg 03/24/19 09:00 03/29/19 09:36 Pepcid Iv IV PUSH 20 mg Q12HR MANJU Administration Glucagon 1 mg 03/23/19 22:35 Glucagon For Inj IM PRN PRN Hypoglycemia Protocol Glucose 15 gm 03/23/19 22:35 Glutose 15 PO PRN PRN Hypoglycemia Protocol Hydralazine HCl 5 mg 03/25/19 17:03 03/28/19 04:56 Apresoline Hcl Inj IV PUSH 5 mg Q8H PRN Administration Blood Pressure - High >160/100 Dextrose 1,000 mls @ 100 mls/hr 03/23/19 22:35 Dextrose 5% 1,000 Ml IVPB PRN PRN Hypoglycemia Protocol Cefazolin Sodium 2 gm in 50 mls @ 100 mls/hr 03/28/19 13
--- NOTE | 2019-03-29 14:35 | PM.IMPN ---
Progress Note: A&P Assessment and Plan (1) Abdominal pain, acute, left upper quadrant: Onset Date: ~03/22/19 Code(s): R10.12 - Left upper quadrant pain Status: Acute Assessment and Plan: John is a pleasant 58 year old male with hypertension and type 2 diabetes who presented to the emergency department on 03/23 from home for evaluation of abdominal pain. Pt describes severe lower left and right quadrant pain, CT abdo shows hernia and mild hydronephrosis. Kidney function was good and Ua is negative. Pt had abdominal distension and abdominal pain on admission, pt found to have a ileus. pt had NG tube removed on 03/26. Pt had few bowel movements on 03/26, was started on clear diet. Pt abdomen is slightly distended again, KUB to showed peristnet noe and seen by Surgery team increase milax to BID and continue clear liquids, . Pt states he used to use alot of narcotics in the past and has some issues with constipation at home. patient blood culture is positive for staph, seen by Dr. Lewis to futher evaluate patient had cardiac ECHO which is negative of any vegetation, and MRI of lumbar spine did not show any source of infection and was started on Cefazolin and vancomycin, will need [place] [facility] abx. Patient denies any complaints of fever chills abdominal pain nausea or vomiting (2) Leukocytosis: Onset Date: ~03/23/19 Code(s): D72.829 - Elevated white blood cell count, unspecified Status: Acute Assessment and Plan: Most likely due to staph infection and plan is above (3) Type 2 diabetes mellitus: Onset Date: Unknown Code(s): E11.9 - Type 2 diabetes mellitus without complications Status: Acute Assessment and Plan: Initiate sliding scale insulin, Accu-Cheks, and hypoglycemic protocol. (4) Hypertension: Onset Date: Unknown Code(s): I10 - Essential (primary) hypertension Status: Acute Assessment and Plan: Blood pressures are high most likely due to pain and stress will monitor, Subjective Date/time seen: 03/29/19 14:35 Interval history: John is a pleasant 58 year old male with hypertension and type 2 diabetes who presented to the emergency department on 03/23 from home for evaluation of abdominal pain. Pt describes severe lower left and right quadrant pain, CT abdo shows hernia and mild hydronephrosis. Kidney function was good and Ua is negative. Pt had abdominal distension and abdominal pain on admission, pt found to have a ileus. pt had NG tube removed on 03/26. Pt had few bowel movements on 03/26, was started on clear diet. Pt abdomen is slightly distended again, KUB to showed peristnet noe and seen by Surgery team increase milax to BID and continue clear liquids, . Pt states he used to use alot of narcotics in the past and has some issues with constipation at home. patient blood culture is positive for staph, seen by Dr. Lewis to futher evaluate patient had cardiac ECHO which is negative of any vegetation, and MRI of lumbar spine did not show any source of infection and was started on Cefazolin and vancomycin, will need [place] [facility]. Patient denies any complaints of fever chills abdominal pain nausea or vomiting Review of Systems Review of Systems: All systems reviewed & are unremarkable except as noted in HPI and below Gastrointestinal: Gastrointestinal: Reports abdominal pain, Reports bloating, Reports constipation, Reports excessive flatus, Denies diarrhea and Denies vomiting Exam Narrative: Exam Narrative: General: A well-developed HEENT: Normocephalic Neck: Supple Respiratory: Lungs are clear to auscultation bilaterally
[2019-03-29 16:53] LABS: Glucose Point of Care 153 (65-105)
[2019-03-29 19:12] LABS: H pylori Ag Stool Not Detected (Not Detected)
[2019-03-29 22:00] VITALS: BP 122/60; PULSE 78; RESP 18; TEMP 36.9; O2SAT 95
[2019-03-29 22:52] LABS: Glucose Point of Care 178 (65-105)
[2019-03-30] MEDS: ceFAZolin 2 GM/D5W 50 ML 2 GM/50 ML BAG IVPB ×3 (05:30→21:08)
[2019-03-30] MEDS: METOCLOPRAMIDE HCL 10 MG/10 ML SOLN UDC 5 MG PO ×4 (05:30→21:09)
[2019-03-30 06:00] VITALS: BP 152/78; PULSE 86; RESP 16; TEMP 36.6; O2SAT 95
[2019-03-30 06:29] LABS: Basophils Absolute Auto 0.1 K/mm3 (0.0-0.1); Basophils Percent Auto 0.6 % (0.2-1.2); Eosinophils Absolute Auto 0.7 K/mm3 (0-0.3); Eosinophils Percent Auto 4.7 % (0-4.4); Hematocrit 42.1 % (42.0-52.0); Hemoglobin 14.1 g/dL (14.0-18.0); Immature Granulocyte Absolute 0.34 K/mm3 (0.00-0.031); Immature Granulocyte Percent A 2.4 % (0-0.5); Lymphocytes Absolute Auto 1.94 K/mm3 (0.9-3.2); Lymphocytes Percent Auto 13.8 % (18.3-44.2); Mean Corpuscular HGB Conc 33.5 g/dl (32-36); Mean Corpuscular Hemoglobin 28.5 pg (26-34); Mean Corpuscular Volume 85.2 fl (80-100); Mean Platelet Volume 9.4 fl (7.4-10.4); Monocytes Absolute Auto 1.7 K/mm3 (0.1-0.6); Monocytes Percent Auto 12.4 % (2.6-8.5); Neutrophils Absolute Auto 9.3 K/mm3 (1.3-6.7); Neutrophils Percent Auto 66.1 % (45.5-73.1); Platelet Count Result 371 k/mm3 (150-375); Red Blood Count 4.94 M/mm3 (4.6-6.20); Red Cell Distribution Width 12.4 % (11.5-14.5); White Blood Count 14.1 K/mm3 (4.5-10.0)
[2019-03-30 07:02] LABS: Alanine Aminotransferase 61 U/L (4-50); Albumin Level 3.1 g/dL (3.5-5.1); Alkaline Phosphatase 106 U/L (38-126); Aspartate Amino Transferase 36 U/L (17-59); Bilirubin,Total 0.7 mg/dL (0.2-1.3); Blood Urea Nitrogen 10 mg/dL (9-20); Calcium 8.6 mg/dL (8.4-10.2); Carbon Dioxide 27 mmol/L (22-30); Chloride 90 mmol/L (98-107); Estimated CRCL calculation 123 ml/min; Estimated Glomerular Filt Rate > 60; Glucose 164 mg/dL (75-110); Potassium 3.5 mmol/L (3.4-5.0); Sodium 128 mmol/L (137-145)
--- NOTE | 2019-03-30 09:23 | WPDGIPROGNO ---
Progress Note: A&P Additional Plan Patient tolerating regular diet. Continues to have good bowel movements. He denies abdominal pain at present. Physical exam reveals him to be alert and oriented. Vital signs stable. Abdomen is obese. Bowel sounds are present soft and nontender. Labs reveal WBC 14.1. Impression 1. Ileus. This is now resolved. [place] to be secondary to narcotic use. Now resolved will advance diet and hopefully discharge soon. 2. Chronic back pain. Suggest local heat and nonsteroidal anti-inflammatory agents. Try to avoid narcotics. 3. Leukocytosis. 4. Staph. infection in blood stream. Etiology for infection somewhat unclear. Appreciate infectious disease input. Subjective Date/time seen: 03/30/19 09:23 Objective Data Vital Signs Vital Signs: Vital Signs - 24 hr 03/29/19 14:00 03/29/19 22:00 03/30/19 06:00 Temperature 36.6 C 36.9 C 36.6 C Pulse Rate 84 78 86 Respiratory Rate 19 18 16 Blood Pressure 144/90 H 122/60 152/78 H Pulse Oximetry 95 95 95 Intake/Output Intake/Output: Intake & Output 03/27/19 03/28/19 03/29/19 03/30/19 23:59 23:59 23:59 23:59 Intake Total 2044 1989 4955 790 Output Total 1800 1500 2800 Balance 992 890 2892 790 Meds/Results Medications: Active Medications Generic Name Dose Route Start Last Admin Trade Name Freq PRN Reason Stop Dose Admin Acetaminophen 650 mg 03/23/19 16:00 03/23/19 21:04 Tylenol Tablet PO 650 mg Q6H PRN Administration Mild Pain (1-3) or Fever Hydrocodone Bitart/Acetaminophen 1 tab 03/23/19 16:00 03/26/19 21:07 [place] 5-325 Mg PO 1 tab Q6H PRN Administration Pain Rated 4-6 Dextrose 12.5 gm 03/23/19 22:35 Dextrose 50% Syringe IV PUSH PRN PRN Hypoglycemia Protocol Famotidine 20 mg 03/24/19 09:00 03/29/19 21:32 Pepcid Iv IV PUSH 20 mg Q12HR MANJU Administration Glucagon 1 mg 03/23/19 22:35 Glucagon For Inj IM PRN PRN Hypoglycemia Protocol Glucose 15 gm 03/23/19 22:35 Glutose 15 PO PRN PRN Hypoglycemia Protocol Hydralazine HCl 5 mg 03/25/19 17:03 03/28/19 04:56 Apresoline Hcl Inj IV PUSH 5 mg Q8H PRN Administration Blood Pressure - High >160/100 Dextrose 1,000 mls @ 100 mls/hr 03/23/19 22:35 Dextrose 5% 1,000 Ml IVPB PRN PRN Hypoglycemia Protocol Cefazolin Sodium 2 gm in 50 mls @ 100 mls/hr 03/28/19 13:00 03/30/19 05:55 Ancef 2 Gm/D5w 50 Ml IVPB Infused Q8HR MANJU Infusion Insulin Aspart 4 - 8 units 03/24/19 08:00 03/30/19 07:19 Novolog SUB-Q Not Given TIDWM [facility] Protocol Metoclopramide HCl 5 mg 03/26/19 11:30 03/30/19 05:30 Reglan Liquid PO 5 mg ACHS MANJU Administration Morphine Sulfate 2 mg 03/23/19 16:00 03/27/19 06:05 Morphine Sulfate Inj IV PUSH 2 mg Q4H PRN Administration Pain Rated 7-10 Polyethylene Glycol 17 gm 03/30/19 09:00 Miralax PO QAM MANJU Silicone 0 each 03/29/19 09:00 03/29/19 13:31 Mepilex Border 4x4 TOPICAL 1 each DAILY MANJU Administration Silver Nitrate 1 applic 03/29/19 09:00 03/29/19 13:31 Silvergel TOPICAL 1 applic DAILY MANJU Administration Radiology Results: ITS Impressions Abdomen/Pelvis CT 03/23/19 12:29 IMPRESSION: 1. Mild left hydronephrosis. 2. Left inguinal hernia containing fat. Chest X-Ray 03/23/19 12:52 IMPRESSION: 1. Mild atelectasis in the lower lung zones. Upper Quadrant Ultrasound 03/25/19 08:50 IMPRESSION: 1. Diffuse hepatic steatosis. Abdomen X-Ray 03/28/19 09:13 IMPRESSION: 1. Persistent gaseous distention of the ascending and transverse colon, likely adynamic ileus. Enema w/Water Soluble 03/28/19 12:08 IMPRESSION: 1. Findings consistent with adynamic ileus. Lumbar Spine MRI 03/28/19 14:59 IMPRESSION: 1. Severe lower lumbar spondylosis. Labs Labs: Laboratory Results - last 24 hr 03/25/19 03/29/19
[2019-03-30] MEDS: POTASSIUM CHLORIDE 20 MEQ PACKET (FOR LIQUID) 40 MEQ PO (09:39)
[2019-03-30] MEDS: FAMOTIDINE 20 MG/2 ML VIAL IV PUSH ×2 (09:40→21:08)
[2019-03-30] MEDS: SILVERGEL (ELTA) 45 ML 1 APPLIC TOPICAL (09:41)
--- NOTE | 2019-03-30 11:44 | WPDINFPN2 ---
Progress Note: A&P Assessment and Plan (1) Staphylococcus aureus bacteremia with sepsis: Code(s): A41.01 - Sepsis due to Methicillin susceptible Staphylococcus aureus Status: Acute Assessment and Plan: 1. S aureus bacteremia with infection, cutaneous source. Repeat BCs ngsf, though mild leukocytosis 2. AoV sclerosis, no infection on TTE 3. Lumbar spondylosis and back pain, no infection on MRI REC Ancef # 3, continue 4 weeks, through 04/24/19. PICC, discharge planning, he does have assistance at home for home IV administration. Ok discharge once all arranged. See me in office 2-3 weeks. F/U WBC over time through [facility] Subjective Date/time seen: 03/30/19 11:44 Interval history: no new complaints. Exam Narrative: Exam Narrative: 38.1 almost 48 hours ago, otherwise afebrile Const: General: no acute distress Eyes: General: appearance normal, both eyes and all related structures Resp: Effort & Inspection: normal respiratory effort Auscultation: clear to auscultation bilaterally Cardio: Rate: regular rate Rhythm: regular rhythm Heart sounds: no gallops and no murmurs GI: GI Palp: Yes soft and No tender Skin: General skin exam: no rashes or lesions noted Objective Data Vital Signs Vital Signs: Vital Signs - 24 hr 03/29/19 14:00 03/29/19 22:00 03/30/19 06:00 Temperature 36.6 C 36.9 C 36.6 C Pulse Rate 84 78 86 Respiratory Rate 19 18 16 Blood Pressure 144/90 H 122/60 152/78 H Pulse Oximetry 95 95 95 Intake/Output Intake/Output: Intake & Output 03/27/19 03/28/19 03/29/19 03/30/19 23:59 23:59 23:59 23:59 Intake Total 2043 1989 4955 790 Output Total 1800 1500 2800 Balance 007 294 8288 790 Meds/Results Medications: Active Medications Generic Name Dose Route Start Last Admin Trade Name Freq PRN Reason Stop Dose Admin Acetaminophen 650 mg 03/23/19 16:00 03/23/19 21:04 Tylenol Tablet PO 650 mg Q6H PRN Administration Mild Pain (1-3) or Fever Hydrocodone Bitart/Acetaminophen 1 tab 03/23/19 16:00 03/26/19 21:07 [place] 5-325 Mg PO 1 tab Q6H PRN Administration Pain Rated 4-6 Dextrose 12.5 gm 03/23/19 22:35 Dextrose 50% Syringe IV PUSH PRN PRN Hypoglycemia Protocol Famotidine 20 mg 03/24/19 09:00 03/30/19 09:40 Pepcid Iv IV PUSH 20 mg Q12HR MANJU Administration Glucagon 1 mg 03/23/19 22:35 Glucagon For Inj IM PRN PRN Hypoglycemia Protocol Glucose 15 gm 03/23/19 22:35 Glutose 15 PO PRN PRN Hypoglycemia Protocol Hydralazine HCl 5 mg 03/25/19 17:03 03/28/19 04:56 Apresoline Hcl Inj IV PUSH 5 mg Q8H PRN Administration Blood Pressure - High >160/100 Dextrose 1,000 mls @ 100 mls/hr 03/23/19 22:35 Dextrose 5% 1,000 Ml IVPB PRN PRN Hypoglycemia Protocol Cefazolin Sodium 2 gm in 50 mls @ 100 mls/hr 03/28/19 13:00 03/30/19 05:55 Ancef 2 Gm/D5w 50 Ml IVPB Infused Q8HR [facility] Infusion Insulin Aspart 4 - 8 units 03/24/19 08:00 03/30/19 07:19 Novolog SUB-Q Not Given TIDWM [facility] Protocol Lidocaine HCl 5 ml 03/30/19 11:44 Xylocaine 1% Local Inj INFILTRATE 03/30/19 11:45 ONCE ONE Metoclopramide HCl 5 mg 03/26/19 11:30 03/30/19 05:30 Reglan Liquid PO 5 mg ACHS MANJU Administration Morphine Sulfate 2 mg 03/23/19 16:00 03/27/19 06:05 Morphine Sulfate Inj IV PUSH 2 mg Q4H PRN Administration Pain Rated 7-10 Polyethylene Glycol 17 gm 03/30/19 09:00 03/30/19 09:40 Miralax PO Not Given QAM [facility] Silicone 0 each 03/29/19 09:00 03/30/19 09:40 Mepilex Border 4x4 TOPICAL 1 each DAILY MANJU Administration Silver Nitrate 1 applic 03/29/19 09:00 03/30/19 09:41 Silvergel TOPICAL 1 applic DAILY MANJU Administration Radiology Results: ITS Impressions Abdomen/Pelvis CT 03/23/19 12:29 IMPRESSION: 1. Mild left hydronephrosis. 2. Left inguinal hernia containing fat. Ch
[2019-03-30 13:25] LABS: Glucose Point of Care 138 (65-105)
[2019-03-30 14:00] VITALS: BP 136/72; PULSE 90; RESP 18; TEMP 36.8; O2SAT 96
[2019-03-30] MEDS: LIDOCAINE HCL 1% LOCAL INJ 2 ML AMPUL 5 ML INFILTRATE (14:10)
--- NOTE | 2019-03-30 15:16 | PM.IMPN ---
Progress Note: A&P Assessment and Plan (1) Abdominal pain, acute, left upper quadrant: Onset Date: ~03/22/19 Code(s): R10.12 - Left upper quadrant pain Status: Acute Assessment and Plan: John is a pleasant 58 year old male with hypertension and type 2 diabetes who presented to the emergency department on 03/23 from home for evaluation of abdominal pain. Pt describes severe lower left and right quadrant pain, CT abdo shows hernia and mild hydronephrosis. Kidney function was good and Ua is negative. Pt had abdominal distension and abdominal pain on admission, pt found to have a ileus. pt had NG tube removed on 03/26. Pt had few bowel movements on 03/26, was started on clear diet. Pt abdomen is slightly distended again, KUB to showed peristnet noe and seen by Surgery team increase milax to BID and continue clear liquids, . Pt states he used to use alot of narcotics in the past and has some issues with constipation at home. patient blood culture is positive for staph, seen by Dr. Lewis to futher evaluate patient had cardiac ECHO which is negative of any vegetation, and MRI of lumbar spine did not show any source of infection and was started on Cefazolin and vancomycin, today patient was seen by Dr. Lewis and recommedign Ancef for 4 weeks until 04/24/2019, patient will need PICC line, will follow up with healthcare technician for further planning, Patient denies any complaints of fever chills abdominal pain nausea or vomiting (2) Leukocytosis: Onset Date: ~03/23/19 Code(s): D72.829 - Elevated white blood cell count, unspecified Status: Acute Assessment and Plan: Most likely due to staph infection and plan is above (3) Type 2 diabetes mellitus: Onset Date: Unknown Code(s): E11.9 - Type 2 diabetes mellitus without complications Status: Acute Assessment and Plan: Initiate sliding scale insulin, Accu-Cheks, and hypoglycemic protocol. (4) Hypertension: Onset Date: Unknown Code(s): I10 - Essential (primary) hypertension Status: Acute Assessment and Plan: Blood pressures are high most likely due to pain and stress will monitor, Subjective Date/time seen: 03/30/19 15:16 Interval history: John is a pleasant 58 year old male with hypertension and type 2 diabetes who presented to the emergency department on 03/23 from home for evaluation of abdominal pain. Pt describes severe lower left and right quadrant pain, CT abdo shows hernia and mild hydronephrosis. Kidney function was good and Ua is negative. Pt had abdominal distension and abdominal pain on admission, pt found to have a ileus. pt had NG tube removed on 03/26. Pt had few bowel movements on 03/26, was started on clear diet. Pt abdomen is slightly distended again, KUB to showed peristnet noe and seen by Surgery team increase milax to BID and continue clear liquids, . Pt states he used to use alot of narcotics in the past and has some issues with constipation at home. patient blood culture is positive for staph, seen by Dr. Lewis to futher evaluate patient had cardiac ECHO which is negative of any vegetation, and MRI of lumbar spine did not show any source of infection and was started on Cefazolin and vancomycin, today patient was seen by Dr. Lewis and recommedign Ancef for 4 weeks until 04/24/2019, patient will need PICC line, will follow up with healthcare technician for further planning, Patient denies any complaints of fever chills abdominal pain nausea or vomiting Review of Systems Review of Systems: All systems reviewed & are unremarkable except as noted in HPI and below Gastrointestinal: G
[2019-03-30 18:31] LABS: Glucose Point of Care 158 (65-105)
[2019-03-30 22:00] VITALS: BP 144/72; PULSE 90; RESP 18; TEMP 36.9; O2SAT 96
[2019-03-31 04:11] LABS: Glucose Point of Care 239 (65-105)
[2019-03-31] MEDS: METOCLOPRAMIDE HCL 10 MG/10 ML SOLN UDC 5 MG PO ×2 (05:19→12:08)
[2019-03-31] MEDS: ceFAZolin 2 GM/D5W 50 ML 2 GM/50 ML BAG IVPB (05:19)
[2019-03-31 05:33] LABS: Basophils Absolute Auto 0.1 K/mm3 (0.0-0.1); Basophils Percent Auto 0.8 % (0.2-1.2); Eosinophils Absolute Auto 0.7 K/mm3 (0-0.3); Eosinophils Percent Auto 4.7 % (0-4.4); Hemoglobin 13.7 g/dL (14.0-18.0); Immature Granulocyte Absolute 0.45 K/mm3 (0.00-0.031); Lymphocytes Percent Auto 15.5 % (18.3-44.2); Mean Corpuscular HGB Conc 33.4 g/dl (32-36); Mean Corpuscular Hemoglobin 28.8 pg (26-34); Mean Corpuscular Volume 86.3 fl (80-100); Mean Platelet Volume 9.4 fl (7.4-10.4); Monocytes Absolute Auto 1.8 K/mm3 (0.1-0.6); Monocytes Percent Auto 12.2 % (2.6-8.5); Neutrophils Absolute Auto 9.4 K/mm3 (1.3-6.7); Neutrophils Percent Auto 63.8 % (45.5-73.1); Platelet Count Result 361 k/mm3 (150-375); Red Blood Count 4.75 M/mm3 (4.6-6.20); Red Cell Distribution Width 12.4 % (11.5-14.5); White Blood Count 14.8 K/mm3 (4.5-10.0)
[2019-03-31 05:39] LABS: Alanine Aminotransferase 66 U/L (4-50); Albumin Level 3.2 g/dL (3.5-5.1); Alkaline Phosphatase 101 U/L (38-126); Aspartate Amino Transferase 40 U/L (17-59); Bilirubin,Total 0.6 mg/dL (0.2-1.3); Blood Urea Nitrogen 9 mg/dL (9-20); Calcium 8.7 mg/dL (8.4-10.2); Carbon Dioxide 27 mmol/L (22-30); Chloride 91 mmol/L (98-107); Estimated CRCL calculation 110 ml/min; Estimated Glomerular Filt Rate > 60; Glucose 171 mg/dL (75-110); Potassium 3.7 mmol/L (3.4-5.0); Sodium 128 mmol/L (137-145)
[2019-03-31 06:00] VITALS: BP 150/73; PULSE 83; RESP 18; TEMP 36.7; O2SAT 95
[2019-03-31] MEDS: FAMOTIDINE 20 MG/2 ML VIAL IV PUSH (08:27)
--- NOTE | 2019-03-31 08:47 | WPDGIPROGNO ---
Progress Note: A&P Additional Plan Patient feels much improved. Tolerating regular diet. Passing bowel movements without difficulty. Physical exam reveals abdomen to be soft nontender with no hepatosplenomegaly. Bowel sounds are normal active. Impression 1. Resolved ileus. This is felt to be secondary to narcotics. 2. Chronic back pain. Suggest limiting narcotic use if at all possible. 3. Staph. aureus septicemia. Followed by Infectious Disease Service. antibiotics to continue. 4. Hernia. This was noted on CT scan. Surgery has been following in feels surgery not indicated. Plan is to continue regular diet discharge when okay with primary care service. No further GI workup anticipated. Subjective Date/time seen: 03/31/19 08:47 Objective Data Vital Signs Vital Signs: Vital Signs - 24 hr 03/30/19 14:00 03/30/19 22:00 03/31/19 06:00 Temperature 36.8 C 36.9 C 36.7 C Pulse Rate 90 90 83 Respiratory Rate 18 18 18 Blood Pressure 136/72 144/72 H 150/73 H Pulse Oximetry 96 96 95 Intake/Output Intake/Output: Intake & Output 03/28/19 03/29/19 03/30/19 03/31/19 23:59 23:59 23:59 23:59 Intake Total 1990 4955 1730 938 Output Total 1500 2800 Balance 490 2155 1730 938 Meds/Results Medications: Active Medications Generic Name Dose Route Start Last Admin Trade Name Freq PRN Reason Stop Dose Admin Acetaminophen 650 mg 03/23/19 16:00 03/23/19 21:04 Tylenol Tablet PO 650 mg Q6H PRN Administration Mild Pain (1-3) or Fever Hydrocodone Bitart/Acetaminophen 1 tab 03/23/19 16:00 03/26/19 21:07 [place] 5-325 Mg PO 1 tab Q6H PRN Administration Pain Rated 4-6 Dextrose 12.5 gm 03/23/19 22:35 Dextrose 50% Syringe IV PUSH PRN PRN Hypoglycemia Protocol Famotidine 20 mg 03/24/19 09:00 03/31/19 08:27 Pepcid Iv IV PUSH 20 mg Q12HR MANJU Administration Glucagon 1 mg 03/23/19 22:35 Glucagon For Inj IM PRN PRN Hypoglycemia Protocol Glucose 15 gm 03/23/19 22:35 Glutose 15 PO PRN PRN Hypoglycemia Protocol Hydralazine HCl 5 mg 03/25/19 17:03 03/28/19 04:56 Apresoline Hcl Inj IV PUSH 5 mg Q8H PRN Administration Blood Pressure - High >160/100 Dextrose 1,000 mls @ 100 mls/hr 03/23/19 22:35 Dextrose 5% 1,000 Ml IVPB PRN PRN Hypoglycemia Protocol Cefazolin Sodium 2 gm in 50 mls @ 100 mls/hr 03/28/19 13:00 03/31/19 05:40 Ancef 2 Gm/D5w 50 Ml IVPB 04/24/19 23:59 Infused Q8HR [facility] Infusion Insulin Aspart 4 - 8 units 03/24/19 08:00 03/31/19 08:26 Novolog SUB-Q Not Given TIDWM [facility] Protocol Metoclopramide HCl 5 mg 03/26/19 11:30 03/31/19 05:19 Reglan Liquid PO 5 mg ACHS MANJU Administration Morphine Sulfate 2 mg 03/23/19 16:00 03/27/19 06:05 Morphine Sulfate Inj IV PUSH 2 mg Q4H PRN Administration Pain Rated 7-10 Polyethylene Glycol 17 gm 03/30/19 09:00 03/31/19 08:28 Miralax PO Not Given QAM [facility] Silicone 0 each 03/29/19 09:00 03/31/19 08:28 Mepilex Border 4x4 TOPICAL Not Given DAILY [facility] Silver Nitrate 1 applic 03/29/19 09:00 03/31/19 08:29 Silvergel TOPICAL Not Given DAILY [facility] Radiology Results: ITS Impressions Abdomen/Pelvis CT 03/23/19 12:29 IMPRESSION: 1. Mild left hydronephrosis. 2. Left inguinal hernia containing fat. Chest X-Ray 03/23/19 12:52 IMPRESSION: 1. Mild atelectasis in the lower lung zones. Upper Quadrant Ultrasound 03/25/19 08:50 IMPRESSION: 1. Diffuse hepatic steatosis. Abdomen X-Ray 03/28/19 09:13 IMPRESSION: 1. Persistent gaseous distention of the ascending and transverse colon, likely adynamic ileus. Enema w/Water Soluble 03/28/19 12:08 IMPRESSION: 1. Findings consistent with adynamic ileus. Lumbar Spine MRI 03/28/19 14:59 IMPRESSION: 1. Severe lower lumbar spondylosis. Labs Labs: Laboratory Results - last 24 hr
[2019-03-31 09:54] LABS: Glucose Point of Care 164 (65-105)
[2019-03-31 12:34] LABS: Glucose Point of Care 199 (65-105)
--- NOTE | 2019-03-31 12:55 | PM.DS ---
DS: Diagnosis Admitting Diagnosis Admitting Diagnosis: Left upper quadrant pain Discharge Diagnosis (1) Abdominal pain, acute, left upper quadrant: Onset Date: ~03/22/19 Code(s): R10.12 - Left upper quadrant pain Status: Acute Assessment and Plan: John is a pleasant 58 year old male with hypertension and type 2 diabetes who presented to the emergency department on 03/23 from home for evaluation of abdominal pain. Pt describes severe lower left and right quadrant pain, CT abdo shows hernia and mild hydronephrosis. Kidney function was good and Ua is negative. Pt had abdominal distension and abdominal pain on admission, pt found to have a ileus. pt had NG tube removed on 03/26. Pt had few bowel movements on 03/26, was started on clear diet. Pt abdomen is slightly distended again, KUB to showed peristnet noe and seen by Surgery team increase milax to BID and continue clear liquids, . Pt states he used to use alot of narcotics in the past and has some issues with constipation at home. patient blood culture is positive for staph, seen by Dr. Lewis to futher evaluate patient had cardiac ECHO which is negative of any vegetation, and MRI of lumbar spine did not show any source of infection and was started on Cefazolin and vancomycin, today patient was seen by Dr. Lewis and recommedign Ancef for 4 weeks until 04/24/2019, patient will need PICC line, will follow up with managed care coordinator for further planning, Patient denies any complaints of fever chills abdominal pain nausea or vomiting (2) Leukocytosis: Onset Date: ~03/23/19 Code(s): D72.829 - Elevated white blood cell count, unspecified Status: Acute Assessment and Plan: Most likely due to staph infection and plan is above (3) Type 2 diabetes mellitus: Onset Date: Unknown Code(s): E11.9 - Type 2 diabetes mellitus without complications Status: Acute Assessment and Plan: Initiate sliding scale insulin, Accu-Cheks, and hypoglycemic protocol. (4) Hypertension: Onset Date: Unknown Code(s): I10 - Essential (primary) hypertension Status: Acute Assessment and Plan: Blood pressures are high most likely due to pain and stress will monitor, DS: Summary Hospital Course Reason for hospitalization: Cali Lopez is a pleasant 58 year old male with hypertension and type 2 diabetes who presented to the emergency department earlier this afternoon from home for evaluation of abdominal pain. A couple of days ago, simply wall read just in himself on the couch, that he has a difficult time describing but stating that it is sometimes sharp in nature. It has been constant since the outset, but seems to come and go in waves of intensity. Currently he rates the pain 7/10. It does not radiate. additionally, he notes abdominal bloating. He took Aleve x3 however that provided him with no benefit. He gives no aggravating or alleviating factors. He has never had similar symptoms in the past. He has not had fever, chills, or sweats. He denies nausea and vomiting. His stools are ?always a little loose? and this is unchanged. No history of pancreatitis, gallstones, GERD, or peptic ulcers. He does not believe that he has had any musculoskeletal injury. Hospital Course: John is a pleasant 58 year old male with hypertension and type 2 diabetes who presented to the emergency department on 03/23 from home for evaluation of abdominal pain. Pt describes severe lower left and right quadrant pain, CT abdo shows hernia and mild hydronephrosis. Kidney function was good and Ua is negative. Pt had abdominal distension and
[2019-03-31 14:00] VITALS: BP 148/66; PULSE 94; RESP 18; TEMP 36.9; O2SAT 97
== END 2019-03-31 15:05 | disposition home health service (06) | DRG 872 ==
LOC: ANHED 14:27 → ANH3MEDSUR 14:47
PROVIDERS: Emergency Medicine; Family Medicine; Surgery; Admitting Provider Internal Medicine; Emergency Provider Emergency Medicine; Visit Provider Family Medicine
DX: A41.01 Sepsis due to Methicillin susceptible Staphylococcus aureus (principal); K56.0 Paralytic ileus; Z68.41 Body mass index [BMI] 40.0-44.9, adult; Z28.21 Immunization not carried out because of patient refusal; I10 Essential (primary) hypertension; E11.9 Type 2 diabetes mellitus without complications; L30.9 Dermatitis, unspecified; E78.5 Hyperlipidemia, unspecified; M19.90 Unspecified osteoarthritis, unspecified site; Z90.5 Acquired absence of kidney; Z87.891 Personal history of nicotine dependence; E66.9 Obesity, unspecified; L40.9 Psoriasis, unspecified; T40.605A Adverse effect of unspecified narcotics, initial encounter; K76.0 Fatty (change of) liver, not elsewhere classified; M47.816 Spondylosis without myelopathy or radiculopathy, lumbar region; M54.9 Dorsalgia, unspecified
CPT/HCPCS: 36415; 36569; 71045; 72148; 74018; 74019; 74177; 74270; 76705; 80048; 80053; 81001; 83605; 83690; 83735; 85025; 85027; 85610; 85730; 87040; 87077; 87186; 87338; 96361; 96374; 96375; 96376; 99285; A9270; C1751; C8929; G0378; J0131; J0360; J0690; J1815; J2270; J3370; J7030; Q9957; Q9967

== ENCOUNTER 2019-05-18 07:22 | Outpatient (CLI) | payer BC, SELFPAY ==
[2019-05-16 15:34] VITALS: BMI 41.1
[2019-05-18] VITALS (9 sets, daily range): BP systolic 119–146; BP diastolic 66–85; PULSE 84–99; RESP 20–22; O2SAT 94–97
--- NOTE | ~2019-05-18 | XR_ITS ---
EXAMINATION: XR chest 1V DATE: 05/18/2019 09:27 INDICATION: Left pleural effusion status post thoracentesis. TECHNIQUE: A single frontal view of the chest was obtained. COMPARISON: Chest single view 03/23/2019 FINDINGS: There is a moderate-sized left pleural effusion. There are airspace opacities in left mid a nd lower lung zones with a basilar predominance. No pneumothorax. The heart size is normal. IMPRESSION: 1. Moderate-sized left pleural effusion. 2. Airspace opacities in left mid and lower lung zones, consistent with atelectasis or less likely pn eum[place]. Reviewed, dictated and finalized at location A. IED BEHAVIOR SCIENCE SPECIALIST IMPRESSION: 1. Moderate-sized left pleural effusion. 2. Airspace opacities in left mid and lower lung zones, consistent with atelect asis or less likely pneumonia.
--- NOTE | ~2019-05-18 | US_ITS ---
EXAMINATION: US thoracentesis DATE: 05/18/2019 09:49 INDICATION: Left pleural effusion. TECHNIQUE: The procedure and its risks, benefits, and alternatives were discussed with the patient. P otential risks discussed included bleeding, infection, and pneumothorax. The patient understood the r isks and agreed to proceed. The skin was prepped and draped in sterile fashion. 1% lidocaine was used for local anesthesia. Under ultrasound guidance, a 5 Fr catheter with trochar was advanced into the left pleural effusion. Fluid was aspirated. The catheter was removed, and a dressing was applied. The re were no immediate complications. FINDINGS: Ultrasound images demonstrate a left pleural effusion and the catheter within the fluid. IMPRESSION: 1. Successful ultrasound-guided thoracentesis yielding 1000 mL of clear, amilcar-colored fluid. Reviewed, dictated and finalized at location A. NE DEVELOPER IMPRESSION: 1. Successful ultrasound-guided thoracentesis yielding 1000 mL of clear, amilcar -colored fluid.
[2019-05-18 07:41] LABS: Mean Platelet Volume 10.4 fl (7.4-10.4); Platelet Count Result 208 k/mm3 (150-375)
[2019-05-18 07:49] LABS: Prothrombin Time 12.5 Seconds (11.1-14.7)
[2019-05-18 09:39] LABS: Glucose Point of Care 158 (65-105)
[2019-05-18 10:23] LABS: Appearance Pleural Fluid Hazy (Clear); Color Pleural Fluid Brown (Colorless); Pleural fluid source Pleural fluid
[2019-05-18 10:24] LABS: Nucleated Cell Pleural Fluid 8324 /uL (0-1000); RBC Pleural Fluid 11076 /uL (0-0)
[2019-05-18 10:32] LABS: Lymphocytes Pleural Fluid 93 %; Macrophages Pleural Fluid 3 %; Monocytes Pleural Fluid 2 %; Neutrophils Pleural Fluid 2 % (0-25)
--- NOTE | 2019-05-18 11:33 | SUR.PHASEII ---
IV DC'D INTACT. DRSG APPLIED.
--- NOTE | 2019-05-18 11:36 | SUR.PHASEII ---
[address] PACHECO AND HE OK'D PT FOR DISCHARGE.
[2019-05-20 06:24] LABS: Glucose Pleural Fluid 110 mg/dL; LDH Pleural Fluid 404 U/L; Total Protein Pleural Fluid 5.6 g/dL
== END 2019-05-18 11:40 | disposition home or self-care (01) ==
PROVIDERS: Radiology Diagnostic Radiology; Visit Provider Internal Medicine Infectious Disease
DX: J90 Pleural effusion, not elsewhere classified (principal); D76.1 Hemophagocytic lymphohistiocytosis
CPT/HCPCS: 32555; 36415; 71045; 82945; 83615; 83986; 84157; 85049; 85610; 87070; 87075; 87102; 87205; 87206; 88104; 88108; 88184; 88185; 88305; 89051; C1729

== ENCOUNTER 2023-11-06 10:15 | Emergency (ER) | payer BC, SELFPAY ==
[2023-11-06 10:21] VITALS: BP 138/85; PULSE 88; RESP 16; TEMP 36.5; O2SAT 100
--- NOTE | 2023-11-06 10:59 | ED.SKABFB ---
HPI - Skin/Abscess/Foreign Bdy General Chief complaint: Skin/Abscess/Foreign Body Stated complaint: RASH Time Seen by Provider: 11/06/23 10:51 Source: patient and RN notes reviewed Mode of arrival: ambulatory Limitations: no limitations History of Present Illness HPI narrative: Patient presents today complaining of a widespread pruritic rash that started yesterday afternoon after patient ate a pizza and some chocolate covered reasons. He has had each of these in the past. Denies any new plant or animal contacts, new medications, or new household products. Denies shortness of breath, difficulty swallowing, or facial swelling. He took 2 Benadryl this morning as well as some hydrocortisone cream without much relief. Related Data Home Medications Medication Instructions Recorded Confirmed metformin 850 mg tablet 850 mg PO BID 03/23/19 10/29/23 escitalopram oxalate 5 mg tablet 5 mg PO DAILY 10/29/23 10/29/23 (Lexapro) cholecalciferol (vitamin D3) 1,250 11/06/23 mcg (50,000 unit) capsule losartan 50 mg tablet mg 11/06/23 Allergies Allergy/AdvReac Type Severity Reaction Status Date / Time Penicillins Allergy Unknown Hives Verified 10/29/23 09:18 Review of Systems Review of Systems: CONSTITUTIONAL: Denies body aches, fever, chills, or sweats. EYES: Denies visual changes, redness, or discharge. ENT: Denies rhinorrhea, congestion, sore throat, or otalgia. CARDIOVASCULAR: Denies chest pain, palpitations, or edema. RESPIRATORY: Denies cough or dyspnea. GASTROINTESTINAL: Denies abdominal pain, nausea, vomiting, or diarrhea. GENITOURINARY: Denies dysuria or hematuria. SKIN: + pruritic rash. MUSCULOSKELETAL: Denies back pain, joint pain, or myalgia. NEUROLOGIC: Denies headache, numbness, tingling, or weakness. PSYCH: Denies depression or anxiety. COUNT INCLUDES THE [facility] Past Medical History Medical History Degenerative arthritis of knee, bilateral Diabetes Eczema History of depression Hyperlipidemia Hypertension (Unknown) Intervertebral disc rupture MRSA bacteremia 2020 Osteoarthritis He has had stem cell injections into both knees. 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 History of testicular surgery For undescended testicle. Family History Family History Father Family history of heart disease in male family member before age 55 Family history of diabetes mellitus in first degree relative Acute myocardial infarction Cerebrovascular accident Diabetes mellitus Hypertension Heart disease Mother Cancer Social History Social History Social History: The patient is originally from [place]. He lives with his in [place]. He has a remote smoking history and quit 1981. He has a history of alcohol abuse but has abstained for nearly 15 years. No drug use. He designates his as his surrogate decision maker and he wishes to be a full code. Smoking packs per day: 1 Smoking cigarettes per day: 20.0 Years smoked: 10 Smoking pack-years: 10.00 Smoking status: Former smoker Tobacco type: cigarettes Alcohol intake: former Substance use: never Living arrangements: with family Occupation/Education: retired Gender identity (if verbalized by the patient): Male Spiritual care concerns: No Agree to blood products: Yes Comments At time of signature, I have reviewed and agree with nursing past medical, surgical, social and family history unless otherwise noted. Please see nursing chart for further information. There is no relevant family history pertinent to
== END 2023-11-06 11:06 | disposition home or self-care (01) ==
PROVIDERS: Emergency Provider Nurse Practitioner; PCP Emergency Medicine
DX: L50.9 Urticaria, unspecified (principal); Z87.891 Personal history of nicotine dependence; E11.9 Type 2 diabetes mellitus without complications; Z79.84 Long term (current) use of oral hypoglycemic drugs; E78.5 Hyperlipidemia, unspecified; I10 Essential (primary) hypertension; M17.0 Bilateral primary osteoarthritis of knee; Z90.5 Acquired absence of kidney; Z86.14 Personal history of Methicillin resistant Staphylococcus aureus infection
CPT/HCPCS: 99213; G0463

== ENCOUNTER 2024-01-21 15:21 | Emergency (ER) | payer BC, SELFPAY ==
--- NOTE | ~2024-01-21 | XR_ITS ---
EXAMINATION: XR knee LT min 4V DATE: 01/21/2024 15:48 INDICATION: Chronic left knee pain. TECHNIQUE: 4 views of left knee including standing views were obtained. COMPARISON: Left knee radiographs 03/28/2013 FINDINGS: There is varus attenuation the knee. No fracture. There is severe osteoarthritis of medial and patellofemoral compartments and mild osteoarthritis of lateral compartment. There is a small knee joint effusion. IMPRESSION: 1. Severe left knee osteoarthritis. 2. Small left knee joint effusion. Reviewed, dictated and finalized at location B.
[2024-01-21 15:35] VITALS: BP 132/62; PULSE 105; RESP 20; TEMP 36.1; O2SAT 99
[2024-01-21 15:36] VITALS: BP 132/62; PULSE 105; RESP 20; TEMP 36.1; O2SAT 99
--- NOTE | 2024-01-21 15:44 | ED.EXTPRO ---
HPI - Extremity Problem General Chief complaint: Extremity Problem,Nontraumatic Stated complaint: Left Leg Injury Time Seen by Provider: 01/21/24 15:45 Source: patient, RN notes reviewed and old records reviewed Mode of arrival: ambulatory Limitations: no limitations History of Present Illness HPI Narrative: 63-year-old male to Express Care with complaint of acute onset of severe left pain radiating posterior thigh for 3 days without injury. Patient reports history of stem cell therapy to bilateral knees in October that was unsuccessful. Patient writhing in pain in triage. Patient reports taking ibuprofen prior to arrival. patient visibly in distress from pain in exam room. Patient able to ambulate with steady shuffled gait. Patient denies shortness of breath, bleeding or clotting disorders. Related Data Home Medications Medication Instructions Recorded Confirmed metformin 850 mg tablet 850 mg PO BID 03/23/19 01/21/24 escitalopram oxalate 5 mg tablet 5 mg PO DAILY 10/29/23 01/21/24 (Lexapro) losartan 50 mg tablet 50 mg PO DAILY 11/06/23 01/21/24 Allergies Allergy/AdvReac Type Severity Reaction Status Date / Time Penicillins Allergy Unknown Hives Verified 01/21/24 15:31 Review of Systems Review of Systems: All systems reviewed & are unremarkable except as noted in HPI and below Constitutional: Constitutional: Reports no additional constitutional complaints Eyes: Eyes: Reports no additional eye complaints ENT: Reports system reviewed and no additional complaints, except as documented Cardiovascular: Cardiovascular: Reports no additional cardiovascular complaints, Denies chest pain and Denies dyspnea Respiratory: Respiratory: Reports no additional respiratory complaints, Denies cough and Denies dyspnea Musculoskeletal: Musculoskeletal: Reports as per HPI and Reports arthralgias ( Left knee radiating into posterior thigh) Neurologic: Reports system reviewed and no additional complaints, except as documented Psychiatric: Psychiatric: Reports no additional psychiatric complaints [facility] Past Medical History Medical History Degenerative arthritis of knee, bilateral Diabetes Eczema History of depression Hyperlipidemia Hypertension (Unknown) Intervertebral disc rupture MRSA bacteremia 2020 Osteoarthritis He has had stem cell injections into both knees. 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 History of testicular surgery For undescended testicle. Family History Family History Father Family history of heart disease in male family member before age 55 Family history of diabetes mellitus in first degree relative Acute myocardial infarction Cerebrovascular accident Diabetes mellitus Hypertension Heart disease Mother Cancer Social History Social History Social History: The patient is originally from [place]. He lives with his in [place]. He has a remote smoking history and quit 1981. He has a history of alcohol abuse but has abstained for nearly 15 years. No drug use. He designates his as his surrogate decision maker and he wishes to be a full code. Smoking packs per day: 1 Smoking cigarettes per day: 20.0 Years smoked: 10 Smoking pack-years: 10.00 Smoking status: Former smoker Tobacco type: cigarettes Alcohol intake: former Substance use: never Living arrangements: with family Occupation/Education: retired Gender identity (if verbalized by the patient): Male Spiritual care concerns: No Agree to blood products: Yes Comments At the time of my signature, I reviewed and agree with the nursing past medical, surgical, social, and family history. There is no relevant family history pertinent to the patient complaint. Exam Const: General: cooperative, no acute distress, alert, in distress moderate ( pain), anxious, uncomfortable, well nourished and obese Nutritional Appearance: well nourished Orientation/consciousness: patient oriented x3 Limitations: no limitations HENMT: Head: normal to inspection Ears: external ears normal Face/Nose/Sinus: Normal external nose present, Normal nares present, normal facial exam, No erythema and No edema Face and sinus: normal facial exam, no erythema and no edema Mouth: Yes Normal oral and palatal mucosa present Eyes: General: appearance normal, both eyes and all related structures Neck: Neck: normal visual inspection, full ROM and no meningeal signs Chest: Chest palpation & inspection: normal inspection of the chest Resp: Effort & Inspection: normal respiratory effort and able to speak in complete sentences Cardio: Jugular venous distension: no JVD Rate: tachycardic Other: superficial vasculature left lower extremity more pronounced than right lower extremity Back/Spine/Pelvis: Cervical Spine: cervical ROM normal Skin: General skin exam: normal color, no rashes or lesions noted and turgor normal Neuro: General: patient oriented x3, gait normal, moves all extremities and no meningeal signs Speech: normal speech Gait exam (Neuro): Normal gait present Extrem: General: normal to inspection, full ROM and capillary refill normal Psych: Appearance: grossly normal and well kempt Course Course Emergency Course: Some parts of this dictation were generated by voice recognition software and may contain typographical and/or grammatical inaccuracies. Level of Care: Express Care Visit Vital Signs Vital signs: Vital Signs Temperature 36.1 C L 01/21/24 15:35 Pulse Rate 105 H 01/21/24 15:35 Respiratory Rate 20 01/21/24 15:35 Blood Pressure 132/62 01/21/24 15:35 Pulse Oximetry 99 01/21/24 15:35 Temperature 36.1 C L 01/21/24 15:36 Pulse Rate 105 H 01/21/24 15:36 Respiratory Rate 20 01/21/24 15:36 Blood Pressure 132/62 01/21/24 15:36 Pulse Oximetry 99 01/21/24 15:36 reviewed Transfer Transfered to: [facility] Transportation: Other ( private vehicle) Transfer rationale: DVT rule out. Higher level of care. Accepting physician: Malou DAMON MDM - Extremity (Nontraumatic) MDM Narrative Medical decision making narrative: 63-year-old male to [facility] with complaint of acute onset of severe left pain radiating posterior thigh for 3 days without injury. Patient reports history of stem cell therapy to bilateral knees in October that was unsuccessful. Patient writhing in pain in triage. Patient reports taking ibuprofen prior to arrival. patient visibly in distress from pain in exam room. Patient able to ambulate with steady shuffled gait. Patient denies shortness of breath, bleeding or clotting disorders. on exam, superficial vasculature left lower extremity more pronounced than right lower extremity. radiology findings severe left knee osteoarthritis and small left knee joint effusion Patient is sitting uncomfortably in exam room nontoxic in appearance. Patient appropriate for transfer to [facility] Transfer instructions reviewed with patient, including strict orders to report directly to the emergency department. Patient offered EMS transport. Patient declined and prefers private vehicle. Patient verbalized understanding. Some parts of this dictation were generated by voice recognition software and may contain typographical and/or grammatical inaccuracies. Differential Diagnosis Differential diagnosis: Likely herpes zoster, gout, cellulitis, superficial thrombophlebitis, deep venous thrombosis of upper extremity, lower extremity edema and deep vein thrombosis of lower extremity Discharge Plan Discharge Clinical Impression: Left knee pain Patient Disposition: Acute Care Hospital Condition: Stable Additional Instructions: Please go directly to the emergency department. Do not eat or drink anything prior to arrival Prescriptions: No Action losartan 50 mg tablet 50 mg PO DAILY escitalopram oxalate [Lexapro] 5 mg tablet 5 mg PO DAILY metformin 850 mg Tablet 850 mg PO BID Mounjaro 5 mg/0.5 mL pen injector 5 mg subcut WEEKLY Qty: 2 0RF Follow-up/Referrals: Pooja Borges DO [Primary Care Provider] -
== END 2024-01-21 16:10 | disposition short-term general hospital (02) ==
PROVIDERS: Emergency Provider Nurse Practitioner Family; PCP Family Medicine
DX: M25.562 Pain in left knee (principal); Z87.891 Personal history of nicotine dependence; M17.0 Bilateral primary osteoarthritis of knee; E11.9 Type 2 diabetes mellitus without complications; Z79.84 Long term (current) use of oral hypoglycemic drugs; E78.5 Hyperlipidemia, unspecified; I10 Essential (primary) hypertension; L40.9 Psoriasis, unspecified; Z90.5 Acquired absence of kidney
CPT/HCPCS: 73564; 99213; G0463

== ENCOUNTER 2024-01-21 16:25 | Emergency (ER) | payer BC, SELFPAY ==
--- NOTE | ~2024-01-21 | CT_ITS ---
CT lumbar spine wo con Ordering provider: Malou Ortiz PA-C History: 63 years Male with . low back pain radiating down left leg . Comparison: None. Technique: CT lumbar spine without contrast. Automated exposure control and iterative reconstruction technique were employed. The dose-length product was 1317.34 mGy-cm. FINDINGS: VERTEBRAE: Normal height and alignment. No subluxation or visible acute fracture. Degenerative change s. Spondylolysis is seen at the level of L5-S1 on the right side. The DISC SPACES: Narrowing of the disc L2-L3, L3-L4 and L5-S1. Schmorl's nodes are seen in the inferior e ndplate of L2, L3, L4 and superior endplate of L4. T12-L1: No stenosis. L1-L2: No stenosis. Mild disc bulge. Bilateral facet joint disease. Mild intervertebral foraminal na rrowing and with no definite root compression. L2-L3: No stenosis. Mild diffuse disc bulge. Bilateral facet joint disease. Mild intervertebral fora elieser narrowing. L3-L4: No stenosis. Mild diffuse disc bulge with mild intervertebral foraminal narrowing. L4-L5: Mild spinal canal stenosis secondary to broad based disc bulge, facet arthropathy, and ligame ntum flavum hypertrophy. Left facet joint disease. Bilateral intervertebral foraminal narrowing with compression. L5-S1: No stenosis. Mild diffuse disc bulge. Bilateral narrowing of the foramina with nerve root com pression. PARASPINOUS SOFT TISSUES: Mild atheromatous disease of the abdominal aorta. Fat containing area seen in the left kidney which may be an angiomyolipoma. Ultrasound evaluation advised. IMPRESSION: No acute osseous abnormality. Multilevel degenerative disc disease, spinal canal stenosis and intervertebral foraminal narrowing. Reviewed, dictated and finalized at location A.
--- NOTE | ~2024-01-21 | US_ITS ---
LEFT LOWER EXTREMITY VENOUS ULTRASOUND Ordering provider: Malou Ortiz History: . left leg pain . Comparison: None. FINDINGS: --COMMON FEMORAL: Patent and free of thrombus. Normal compressibility, phasic flow and augmentation. --PROXIMAL SUPERFICIAL FEMORAL: Patent and free of thrombus. Normal compressibility, phasic flow and augmentation. --DISTAL SUPERFICIAL FEMORAL: Patent and free of thrombus. Normal compressibility, phasic flow and au gmentation. --POPLITEAL: Patent and free of thrombus. Normal compressibility, phasic flow and augmentation. --POSTERIOR TIBIAL: Patent and free of thrombus. Normal compressibility, phasic flow and augmentation . IMPRESSION: Negative left lower extremity venous US. No deep vein thrombosis. Reviewed, dictated and finalized at location A.
[2024-01-21 16:26] VITALS: BP 157/86; PULSE 102; RESP 20; TEMP 36.3; O2SAT 98
--- NOTE | 2024-01-21 17:15 | ED_ITS ---
HPI - Extremity Injury (Lower) General Chief Complaint: Extremity Injury, Lower <Malou Ortiz PA-C - Last Filed: 01/22/24 13:53> Stated Complaint: L knee pain <Malou Ortiz PA-C - Last Filed: 01/22/24 13:53> Time Seen by Provider: 01/21/24 17:16 <Malou Ortiz PA-C - Last Filed: 01/22/24 13:53> Focused HPI: This is a 63 year old male that presents to the ER for left leg pain. Ongoing over the last couple of days. Reports the pain goes all the way from his toes to the left lower back. Reports pain is worse with some movement. He took some Tylenol 3 this morning for pain. Was sent in the ER from urgent care to r/o DVT. Denies fever, erythema or edema. GENERAL: Well-appearing, well-nourished, uncomfortable HEAD: Normocephalic, atraumatic. CHEST: Clear to auscultation. ?No respiratory distress. HEART: Regular rate and rhythm.? NEURO: ?Alert and oriented x3. Patient screened in triage and initial orders placed.? ?Additional care and disposition to be based upon?diagnostic testing and treatment. <Malou Ortiz PA-C - Last Filed: 01/22/24 13:53> History of Present Illness HPI Narrative: Patient sent here to rule out DVT, he has been having pain in his left leg that started after he was trying to ramsey down a deer several days ago while hunting. Has had history of arthritis in his knees for a while. <Maris Kenyon MD - Last Filed: 01/22/24 04:25> Related Data Home Medications: Home Medications Medication Instructions Recorded Confirmed metformin 850 mg tablet 850 mg PO BID 03/23/19 01/21/24 escitalopram oxalate 5 mg tablet 5 mg PO DAILY 10/29/23 01/21/24 (Lexapro) losartan 50 mg tablet 50 mg PO DAILY 11/06/23 01/21/24 <Malou Ortiz PA-C - Last Filed: 01/22/24 13:53> Allergies/Adverse Reactions: Allergies Allergy/AdvReac Type Severity Reaction Status Date / Time Penicillins Allergy Unknown Hives Verified 01/21/24 15:31 <Malou Ortiz PA-C - Last Filed: 01/22/24 13:53> Review of Systems Review of Systems: All systems reviewed & are unremarkable except as noted in HPI and below <Maris Kenyon MD - Last Filed: 01/22/24 04:25> COUNTS INCLUDE 234 BEDS AT THE [facility] Past Medical History Medical History: Medical History Degenerative arthritis of knee, bilateral Diabetes Eczema History of depression Hyperlipidemia Hypertension (Unknown) Intervertebral disc rupture MRSA bacteremia 2020 Osteoarthritis He has had stem cell injections into both knees. Psoriasis Type 2 diabetes mellitus (Unknown) <Malou Ortiz PA-C - Last Filed: 01/22/24 13:53> Surgical History Surgical History: Surgical History H/O hernia repair H/O left knee surgery H/O partial nephrectomy Left partial nephrectomy many years ago due to ?a vessel kinking off the kidney.? History of testicular surgery For undescended testicle. <Malou Ortiz PA-C - Last Filed: 01/22/24 13:53> Family History Family History: Family History Father Family history of heart disease in male family member before age 55 Family history of diabetes mellitus in first degree relative Acute myocardial infarction Cerebrovascular accident Diabetes mellitus Hypertension Heart disease Mother Cancer <Malou Ortiz PA-C - Last Filed: 01/22/24 13:53> Social History Social History: Social History Social History: The patient is originally from [place]. He lives with his in [place]. He has a remote smoking history and quit 1981. He has a history of alcohol abuse but has abstained for nearly 15 years. No drug use. He designates his as his surrogate decision maker and he wishes to be a full code. Smoking packs per day: 1 Smoking cigarettes per day: 20.0 Years smoked: 10 Smoking pack-years: 10.00 Smoking status: Former smoker Tobacco type: cigarettes Alcohol intake: former Substance use: never Living arrangements: with family Occupation/Education: retired Gender identity (if verbalized by the patient): Male Spiritual care concerns: No Agree to blood products: Yes <Malou Ortiz PA-C - Last Filed: 01/22/24 13:53> Exam Narrative: EXAMINATION OF ORGAN SYSTEMS/BODY AREAS: Constitutional: Vital signs per nursing GENERAL:[No acute distress, non-toxic appearing.] HEAD: Normal with no signs of head trauma. EYES: EOMI, conjunctiva normal ENT: Hearing grossly intact LUNGS: Nonlabored breathing. HEART: [Regular rate and rhythm] ABD: [Soft], [nontender to palpation] EXT: Normal range of motion, Very small left knee effusion, no tenderness to palpation SKIN: some open skin lesions on bilateral legs, abdomen wall NEURO: [Alert and oriented x 3. No gross focal sensory or strength deficits.] PSYCH: Normal affect <Maris Kenyon MD - Last Filed: 01/22/24 04:25> Course Vital Signs Vital signs: Vital Signs Temperature 97.4 F L 01/21/24 16:26 Pulse Rate 102 H 01/21/24 16:26 Respiratory Rate 20 01/21/24 16:26 Blood Pressure 157/86 H 01/21/24 16:26 Pulse Oximetry 98 01/21/24 16:26 Oxygen Delivery Room Air 01/21/24 16:26 Temperature 97.4 F L 01/21/24 16:26 Pulse Rate 85 01/22/24 03:02 Respiratory Rate 15 01/22/24 03:02 Blood Pressure 148/80 H 01/22/24 03:02 Pulse Oximetry 98 01/22/24 03:02 Oxygen Delivery Room Air 01/21/24 16:26 <Malou Ortiz PA-C - Last Filed: 01/22/24 13:53> Vital Signs Temperature 97.4 F L 01/21/24 16:26 Pulse Rate 102 H 01/21/24 16:26 Respiratory Rate 20 01/21/24 16:26 Blood Pressure 157/86 H 01/21/24 16:26 Pulse Oximetry 98 01/21/24 16:26 Oxygen Delivery Room Air 01/21/24 16:26 Temperature 97.4 F L 01/21/24 16:26 Pulse Rate 85 01/22/24 03:02 Respiratory Rate 15 01/22/24 03:02 Blood Pressure 148/80 H 01/22/24 03:02 Pulse Oximetry 98 01/22/24 03:02 Oxygen Delivery Room Air 01/21/24 16:26 <Maris Kenyon MD - Last Filed: 01/22/24 04:25> MDM - Extremity Injury (Lower) MDM Narrative Medical decision making narrative: patient here for rule out DVT, thankfully this is negative, I suspect most likely arthritis flare, patient would rather not take steroids, will defer provide Joseph wrap, he would also like to have antibiotics due to his open skin sores, I will provide short course and have him follow-up with his orthopedic surgeon. Patient agreeable to this plan with return precautions. <Maris Kenyon MD - Last Filed: 01/22/24 04:25> Imaging Data Radiologist's impression: ITS Impressions Venous Doppler Study 01/21/24 17:49 IMPRESSION: Negative left lower extremity venous US. No deep vein thrombosis. Lumbar Spine CT 01/21/24 18:09 IMPRESSION: No acute osseous abnormality. Multilevel degenerative disc disease, spinal canal stenosis and intervertebral foraminal narrowing. <Malou Ortiz PA-C - Last Filed: 01/22/24 13:53> Critical Care Time Critical Care Time Critical Care Time: No <Malou Ortiz PA-C - Last Filed: 01/22/24 13:53> Discharge Plan Discharge Clinical Impression: Knee sprain <Malou Ortiz PA-C - Last Filed: 01/22/24 13:53> Patient Disposition: Home, Self-Care <Malou Ortiz PA-C - Last Filed: 01/22/24 13:53> Condition: Stable <Malou Ortiz PA-C - Last Filed: 01/22/24 13:53> Instructions: Antibiotic Form, Cellulitis (ED) <Malou Ortiz PA-C - Last Filed: 01/22/24 13:53> Prescriptions: New cephalexin 750 mg capsule 750 mg PO Q8H 7 Days Qty: 21 0RF No Action losartan 50 mg tablet 50 mg PO DAILY escitalopram oxalate [Lexapro] 5 mg tablet 5 mg PO DAILY metformin 850 mg Tablet 850 mg PO BID Mounjaro 5 mg/0.5 mL pen injector 5 mg subcut WEEKLY Qty: 2 0RF <Malou Ortiz PA-C - Last Filed: 01/22/24 13:53> Follow-up/Referrals: Pooja Borges DO [Primary Care Provider] - 2 Days <Malou Ortiz PA-C - Last Filed: 01/22/24 13:53>
[2024-01-22] MEDS: CEPHALEXIN 500 MG CAPSULE PO (02:46)
[2024-01-22] MEDS: HYDROcodone/acetaminophen (*CRX) 5-325 MG TABLET 1 TAB PO (02:56)
[2024-01-22 03:02] VITALS: BP 148/80; PULSE 85; RESP 15; O2SAT 98
== END 2024-01-22 03:05 | disposition home or self-care (01) ==
LOC: ANHED 01-22 02:30
PROVIDERS: Emergency Provider Emergency Medicine; PCP Family Medicine
DX: S83.92XA Sprain of unspecified site of left knee, initial encounter (principal); E11.9 Type 2 diabetes mellitus without complications; E78.5 Hyperlipidemia, unspecified; I10 Essential (primary) hypertension; Z87.891 Personal history of nicotine dependence
CPT/HCPCS: 72131; 93971; 99284; A9270

== ENCOUNTER 2024-05-11 08:02 | Emergency (ER) | payer BC, MEDICARE, SELFPAY ==
[2024-05-11 08:10] VITALS: BP 128/81; PULSE 85; RESP 16; TEMP 36.1; O2SAT 98
--- NOTE | 2024-05-11 08:15 | ED.EYEPROB ---
HPI - Eye Problem General Chief complaint: Eye Problems Stated complaint: FB EYE Time Seen by Provider: 05/11/24 08:15 Source: patient Mode of arrival: ambulatory Limitations: no limitations History of Present Illness HPI Narrative: 64-year-old male presents with complaint pain, redness, drainage from right eye. Patient states he woke up yesterday and rubbed right eye. States when he blinks he feels like something is in his eye, like may be a hair or eyelash. No photophobia. Does not wear contacts. All systems reviewed and negative except as noted above. Related Data Allergies Allergy/AdvReac Type Severity Reaction Status Date / Time Penicillins Allergy Unknown Hives Verified 05/11/24 08:14 Review of Systems Review of Systems: CONSTITUTIONAL: Denies fever, chills, or sweats. EYES: Denies visual changes reports right eye pain, redness, and discharge. ENT: Denies rhinorrhea, congestion, sore throat, or otalgia. CARDIOVASCULAR: Denies chest pain, palpitations, or edema. RESPIRATORY: Denies cough or dyspnea. GASTROINTESTINAL: Denies abdominal pain, nausea, vomiting, or diarrhea. GENITOURINARY: Denies dysuria or hematuria. SKIN: Denies rash or itching. MUSCULOSKELETAL: Denies back pain, joint pain, or myalgia. NEUROLOGIC: Denies headache, numbness, or weakness. PSYCHIATRIC: Denies anxiety or depression. All other systems reviewed are negative, except as documented in HPI. [facility] Past Medical History Medical History Degenerative arthritis of knee, bilateral Diabetes Eczema History of depression Hyperlipidemia Hypertension (Unknown) Intervertebral disc rupture MRSA bacteremia 2020 Osteoarthritis He has had stem cell injections into both knees. 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 History of testicular surgery For undescended testicle. Family History Family History Father Family history of heart disease in male family member before age 55 Family history of diabetes mellitus in first degree relative Acute myocardial infarction Cerebrovascular accident Diabetes mellitus Hypertension Heart disease Mother Cancer Social History Social History Social History: The patient is originally from [place]. He lives with his in [place]. He has a remote smoking history and quit 1981. He has a history of alcohol abuse but has abstained for nearly 15 years. No drug use. He designates his as his surrogate decision maker and he wishes to be a full code. Smoking packs per day: 1 Smoking cigarettes per day: 20.0 Years smoked: 10 Smoking pack-years: 10.00 Smoking status: Former smoker Tobacco type: cigarettes Alcohol intake: former Substance use: never Living arrangements: with family Occupation/Education: retired Gender identity (if verbalized by the patient): Male Spiritual care concerns: No Agree to blood products: Yes Comments At time of signature, agree with nursing past medical, surgical, social and family history. There is no relevant family history pertinent to the presenting complaint. Exam Narrative: GENERAL: This is a well-nourished, well-developed patient, in no apparent distress. HEAD: normocephalic, atraumatic. EYES: PERRL. Right eye conjunctiva and Sclera erythematous. Left eye sclera and conjunctiva clear/white. No drainage bilaterally. Vision is grossly intact. Topical anesthetic was instilled with good anesthesia using 1gtt of opth anesthetic agent (tetracaine). Fluorescein stain of the R eye was performed. Topical anesthetic was instilled with good anesthesia using 1gtt of opth anesthetic agent (tetracaine). Fluorescein stain of the R/L eye was performed without uptake of dye. No epithelial defect was noted. NO FB, ulcer or dendritic lesions. Upper lid was everted and no FB or lesions were noted. NO Lilliana sign. Normal saline irrigation eye solution was performed and the patient tolerated the procedure well, no adverse reaction or complications. Noted intraocular pressure readings. Right eye at 6:00 o clock. NO FB, ulcer or dendritic lesions. Upper lid was everted and no FB or lesions were noted. Normal saline irrigation eye solution was performed and the patient tolerated the procedure well, no adverse reaction or complications. EARS: External ears normal NOSE: External nose normal NECK: Neck supple, non-tender without lymphadenopathy, masses or thyromegaly. CARDIOVASCULAR: Regular rate and rhythm without murmurs, gallops, or rubs. RESPIRATORY: Clear to auscultation. Breath sounds equal bilaterally. No wheezes, rales, or rhonchi. SKIN: warm, Dry, intact with no suspicious lesions or rash, good texture and turgor. NEURO: awake, alert, and oriented to person, place and time. There were no obvious focal neurologic abnormalities. EXTREMITIES: No joint tenderness, effusion, or edema noted. Eyes: Eyes/upper lids images:  1. corneal abrasion Course Course Level of Care: Express Care Visit Vital Signs Vital signs: Vital Signs Temperature 36.1 C L 05/11/24 08:10 Pulse Rate 85 05/11/24 08:10 Respiratory Rate 16 05/11/24 08:10 Blood Pressure 128/81 05/11/24 08:10 Pulse Oximetry 98 05/11/24 08:10 Temperature 36.1 C L 05/11/24 08:10 Pulse Rate 85 05/11/24 08:10 Respiratory Rate 16 05/11/24 08:10 Blood Pressure 128/81 05/11/24 08:10 Pulse Oximetry 98 05/11/24 08:10 Reviewed MDM - Eye Problem MDM Narrative Medical decision making narrative: Corneal abrasion noted to right eye. Patient prescribed erythromycin antibiotic ointment. Recommend he follow up with ad operations specialist if symptoms not improving. Please be advised this is a medical document. It is intended for [id number] communication. It is written in medical language and may contain unfamiliar abbreviations or verbiage. Medical documents are intended to carry relevant information, facts as evident, and the clinical opinion of the practitioner at the time of the encounter. This report may have been done utilizing a voice recognition system. Attempts have been made to correct errors. However, there may be uncorrected grammatical, spelling, and recognition errors present. The file time of this note does not necessarily represent the time of service. Discharge Plan Discharge Clinical Impression: Corneal abrasion, right Patient Disposition: Home, Self-Care Condition: Stable Instructions: Antibiotic Form, Corneal Abrasion (ED) Additional Instructions: Use antibiotic eye ointment as prescribed. Take ibuprofen or Tylenol every 6-8 hours as needed for pain. Follow up with ad operations specialist if symptoms not improving. Patient Language: Azeri Prescriptions: New erythromycin 5 mg/gram (0.5 %) ointment 1 applic RIGHT EYE QID Qty: 3.5 0RF Rx Instructions: May use up to 6 times daily. Stop 24 hours after symptoms have resolved. No Action losartan 50 mg tablet 50 mg PO DAILY Qty: 90 1RF escitalopram oxalate [Lexapro] 5 mg tablet 5 mg PO DAILY Qty: 90 1RF metformin 850 mg tablet 850 mg PO BID Qty: 180 1RF Mounjaro 5 mg/0.5 mL pen injector 5 mg subcut WEEKLY Qty: 2 3RF Follow-up/Referrals: UNKNOWN,DOCTOR [Primary Care Provider] - Time of Disposition: 08:29
[2024-05-11] MEDS: FLUORESCEIN SOD 1 MG/STRIP RIGHT EYE (08:21)
[2024-05-11] MEDS: DACRIOSE EYE IRRIGATION 118 ML BOTTLE RIGHT EYE (08:21)
[2024-05-11] MEDS: TETRACAINE HCL 0.5% OPHTH SOLN 4 ML BTL 2 DROP RIGHT EYE (08:21)
== END 2024-05-11 08:32 | disposition home or self-care (01) ==
PROVIDERS: Emergency Provider Nurse Practitioner Family
DX: S05.01XA Injury of conjunctiva and corneal abrasion without foreign body, right eye, initial encounter (principal); X58.XXXA Exposure to other specified factors, initial encounter; Z87.891 Personal history of nicotine dependence; E11.9 Type 2 diabetes mellitus without complications; Z79.84 Long term (current) use of oral hypoglycemic drugs; I10 Essential (primary) hypertension; E78.5 Hyperlipidemia, unspecified; M17.0 Bilateral primary osteoarthritis of knee; L40.9 Psoriasis, unspecified
CPT/HCPCS: 99213; A9270; G0463